=== PATIENT | female | born 1940 | race Caucasian/White ===

== ENCOUNTER 2017-12-15 14:53 | Emergency (ER) | payer BC, MEDICARE ==
[~2017-12-15] VITALS: Ht 165.1 cm; Wt 83.2 kg
[2017-12-15 15:30] VITALS: BP 164/71; PULSE 64; RESP 16; TEMP 97.6; O2SAT 97
--- NOTE | 2017-12-15 16:41 | PD ---
HPI Chief Complaint: Cardiac Complaint Time Seen by Provider: 16:27 Travel History International Travel<30 days: No Contact w/Intl Traveler<30days: No Traveled to known affect area: No History of Present Illness HPI This patient complains of last night having a rapid heartbeat. She has history of paroxysmal A. fib and takes amiodarone and baby aspirin therapy. She often has a baseline bradycardia rhythm. She currently feels some dizziness. She has chronic dizziness going on for months to years. This hits her on a daily basis. Symptoms severity is moderate. No alleviating factors. No syncope. No exacerbating factors. She reports medicine compliance. PFS Past Medical History Hx Anticoagulant Therapy: Yes (asa 81mg) ?: Not Past Surgical History Hysterectomy: Yes Social History Alcohol Use: No Tobacco Use: No Substance Use: No Allergies-Medications (Allergen,Severity, Reaction): Coded Allergies: moxifloxacin (Verified Allergy, Severe, facial swelling, 12/15/17) latex (Verified Allergy, Intermediate, rash, 12/15/17) Reported Meds & Prescriptions Reported Meds & Active Scripts Active Reported Aspirin 81 (Aspirin) 81 Mg Tabdr 81 Mg PO DAILY Amiodarone (Amiodarone HCl) 100 Mg Tab 100 Mg PO DAILY Letrozole 2.5 Mg Tab Review of Systems General / Constitutional: No: Fever Eyes: No: Visual changes HENT: Positive: Lightheadedness, No: Headaches Cardiovascular: Positive: Palpitations, Irregular Rhythm, Tachycardia, No: Chest Pain or Discomfort Respiratory: No: Shortness of Breath Gastrointestinal: No: Abdominal Pain Genitourinary: No: Dysuria Musculoskeletal: No: Pain Skin: No Rash Neurologic: Positive: Dizziness, No: Weakness Psychiatric: No: Depression Endocrine: No: Polydipsia Hematologic/Lymphatic: No: Easy Bruising Physical Exam Narrative GENERAL: Well-nourished, well-developed patient in no apparent distress. SKIN: Focused skin assessment reveals no rash and nodules. Skin is Warm and dry. HEAD: Atraumatic. Normocephalic. EYES: Pupils equal and round. No scleral icterus. No injection or drainage. ENT: No nasal bleeding or discharge. Mucous membranes pink and moist. NECK: Trachea midline. No JVD. CARDIOVASCULAR: Regular rate and rhythm. No murmur appreciated. Heart rate is regular and 60 RESPIRATORY: No accessory muscle use. Clear to auscultation. Breath sounds equal bilaterally. GASTROINTESTINAL: Abdomen soft, non-tender, nondistended. Hepatic and splenic margins not palpable. MUSCULOSKELETAL: No obvious deformities. No clubbing. No cyanosis. No edema. NEUROLOGICAL: Awake and alert. No obvious cranial nerve deficits. Motor grossly within normal limits. Normal speech. PSYCHIATRIC: Appropriate mood and affect; insight and judgment normal. Data Data Last Documented VS Vital Signs Date Time Temp Pulse Resp B/P (MAP) Pulse Ox O2 Delivery O2 Flow Rate FiO2 12/15/17 17:25 Room Air 12/15/17 15:30 97.6 64 16 164/71 (102) 97 Orders Orders Electrocardiogram (12/15/17 ) Comfort Filler / Telemetry GLEN.Q8H (12/15/17 16:32) Complete Blood Count With Diff (12/15/17 16:32) Basic Metabolic Panel (Bmp) (12/15/17 16:32) Iv Access Insert/Monitor (12/15/17 16:32) Labs Laboratory Tests Test 12/15/17 17:10 White Blood Count 3.8 TH/MM3 Red Blood Count 3.97 MIL/MM3 Hemoglobin 12.6 GM/DL Hematocrit 37.6 % Mean Corpuscular Volume 94.6 FL Mean Corpuscular Hemoglobin 31.7 PG Mean Corpuscular Hemoglobin Concent 33.5 % Red Cell Distribution Width 12.3 % Platelet Count 108 TH/MM3 Mean Platelet Volume 7.9 FL Neutrophils (%) (Auto) 45.0 % Lymphocytes (%) (Auto) 37.0 % Monocytes (%) (Auto) 14.4 % Eosinophils (%) (Auto) 3.1 % Basophils (%) (Auto) 0.5 % Neutrophils # (Auto) 1.8 TH/MM3 Lymphocytes # (Auto) 1.4 TH/MM3 Monocytes # (Auto) 0.5 TH/MM3 Eosinophils # (Auto) 0.1 TH/MM3 Basophils # (Auto) 0.0 TH/MM3 CBC Comment DIFF FINAL Differential Comment Blood Urea Nitrogen 19 MG/DL Creatinine 0.75 MG/DL Random Glucose 90 MG/DL Calcium Level 8.9 MG/DL Sodium Level 141 MEQ/L Potassium Level 4.2 MEQ/L Chloride Level 107 MEQ/L Carbon Dioxide Level 30.1 MEQ/L Anion Gap 4 MEQ/L Estimat Glomerular Filtration Rate 75 ML/MIN [facility] Medical Decision Making Medical Screen Exam Complete: Yes Emergency Medical Condition: Yes Medical Record Reviewed: Yes Differential Diagnosis Cardiac arrhythmia, vasovagal episode, PVCs Narrative Course I have reviewed the patient's electronic medical record. I reviewed her EKG which shows sinus bradycardia but no ectopy or ST elevation Extended cardiac monitoring shows sinus bradycardia without ectopy CBC shows some thrombocytopenia but nothing emergent. She is cautioned to get this reevaluated especially in light of her aspirin therapy Metabolic profile is normal Haven't seen any dangerous arrhythmias despite a lot of monitoring She does run bradycardic but no hypotension with that Recommend outpatient follow-up at this point Diagnosis Primary Impression: Palpitations Additional Impressions: Bradycardia Lightheadedness Additional Instructions: The patient was advised to follow up with their physician and return if they worsen. Your platelet count is a bit low, have your physician reevaluate this and follow -up Med/Other Pt SpecificInfo: Other Disposition: 01 DISCHARGE HOME Condition: Stable Joey Olivas MD Dec 15, 2017 16:41
[2017-12-15] MEDS ORDERED: AMIO0.1T PO (17:25)
[2017-12-15] MEDS ORDERED: ASPI1TAB57 PO (17:25)
[2017-12-15] MEDS ORDERED: LETR2.5T (17:25)
[2017-12-15 17:26] LABS: AUTOMATED NEUTROPHIL # 1.8 TH/MM3 (1.8-7.7); BASOPHIL % 0.5 % (0.0-2.0); EOSINOPHIL # 0.1 TH/MM3 (0-0.4); EOSINOPHIL % 3.1 % (0.0-4.0); HEMATOCRIT 37.6 % (35.0-46.0); HEMOGLOBIN 12.6 GM/DL (11.6-15.3); LYMPHOCYTE # 1.4 TH/MM3 (1.0-4.8); MEAN CELL VOLUME 94.6 FL (80.0-100.0); MEAN CORPUSCULAR HEMOGLOBIN 31.7 PG (27.0-34.0); MEAN CORPUSCULAR HGB CONC 33.5 % (32.0-36.0); MEAN PLATELET VOLUME 7.9 FL (7.0-11.0); MONO % 14.4 % (0.0-8.0); MONOCYTE # 0.5 TH/MM3 (0-0.9); PLATELET COUNT 108 TH/MM3 (150-450); RED BLOOD COUNT 3.97 MIL/MM3 (4.00-5.30); RED CELL DISTRIBUTION WIDTH 12.3 % (11.6-17.2); WHITE BLOOD COUNT 3.8 TH/MM3 (4.0-11.0)
[2017-12-15 17:56] LABS: BICARBONATE 30.1 MEQ/L (21.0-32.0); CALCIUM 8.9 MG/DL (8.5-10.1)
[2017-12-15 18:00] LABS: CREATININE 0.75 MG/DL (0.50-1.00)
[2017-12-15 19:04] VITALS: BP 145/74
--- NOTE | 2017-12-16 14:36 | EKG ---
Date Performed: 12/15/2017 Time Performed: 16:48:08 PTAGE: 77 years EKG: SINUS BRADYCARDIA BORDERLINE ECG NO PREVIOUS TRACING DOCTOR: Matt Hutton Interpretating Date/Time 12/16/2017 14:34:03
== END 2017-12-15 19:06 | disposition home or self-care (01) ==
LOC: PHED 14:53
DX: R00.2 Palpitations (principal); R00.1 Bradycardia, unspecified; I48.0 Paroxysmal atrial fibrillation; Z79.01 Long term (current) use of anticoagulants
CPT/HCPCS: 80048; 85025; 93005; 99284

== ENCOUNTER 2017-12-22 11:19 | Inpatient (IN) | payer MEDICARE, BC ==
[2017-12-22] VITALS (7 sets, daily range): BP systolic 117–171; BP diastolic 54–79; PULSE 47–98; RESP 16–18; TEMP 97.9–98; O2SAT 96–99
[~2017-12-22] VITALS: Ht 165.1 cm; Wt 83.0 kg
[~2017-12-22 11:19] MED LIST: AMIO0.1T PO; ASPI1TAB57 PO; LETR2.5T
[2017-12-22] MEDS ORDERED: SODIUM CHLOR 0.9% 1000 ML INJ 1,000 ML IV ONE (11:45)
[2017-12-22] MEDS ORDERED: SODIUM CHLORIDE 0.9% FLUSH 10 ML FLUSH IVF PRN (11:45)
--- NOTE | 2017-12-22 11:46 | PD ---
HPI Chief Complaint: General Weakness Time Seen by Provider: 11:33 Travel History International Travel<30 days: No Contact w/Intl Traveler<30days: No Traveled to known affect area: No History of Present Illness HPI 77-year-old female with history of paroxysmal A. fib, bradycardia, presents to emergency department following a syncopal episode. Patient was at a store with her when she began to feel weak and nauseous. She went outside to get some fresh air. She leaned up against trash can at which time she "blacked out. " She slid down to the ground. She did not strike her head or lose consciousness. She states now she feels weak and tired. Denies any chest pain or tightness. 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 She was seen and evaluated on the for evaluation of palpitations at the [place] emergency department. She was discharged home at that time. Patient denies any recent illnesses, fever, chills. She has no other symptoms to report. PFSH Past Medical History Hx Anticoagulant Therapy: Yes (asa 81mg) Atrial Fibrillation: Yes Cancer: Yes (right breast ) Cardiovascular Problems: Yes (BRADYCARDIA ) Past Surgical History Hysterectomy: Yes Tonsillectomy: Yes Other Surgery: Yes (right breast lumpectomy ) Social History Alcohol Use: No Tobacco Use: No Substance Use: No Allergies-Medications (Allergen,Severity, Reaction): Coded Allergies: moxifloxacin (Verified Allergy, Severe, facial swelling, 12/22/17) latex (Verified Allergy, Intermediate, rash, 12/22/17) Reported Meds & Prescriptions Reported Meds & Active Scripts Active Reported Aspirin 81 (Aspirin) 81 Mg Tabdr 81 Mg PO DAILY Amiodarone (Amiodarone HCl) 100 Mg Tab 100 Mg PO DAILY Letrozole 2.5 Mg Tab Review of Systems Except as stated in HPI: all other systems reviewed are Neg Physical Exam Narrative GENERAL: Well-nourished female patient, in no acute distress. SKIN: Focused skin assessment warm/dry. HEAD: Atraumatic. Normocephalic. EYES: Pupils equal and round. No scleral icterus. No injection or drainage. ENT: No nasal bleeding or discharge. Mucous membranes pink and moist. NECK: Trachea midline. No JVD. CARDIOVASCULAR: Regular rate and rhythm. RESPIRATORY: No accessory muscle use. Clear to auscultation. Breath sounds equal bilaterally. GASTROINTESTINAL: Abdomen soft, non-tender, nondistended. Hepatic and splenic margins not palpable. MUSCULOSKELETAL: No obvious deformities. No clubbing. No cyanosis. No edema. NEUROLOGICAL: Awake and alert. No obvious cranial nerve deficits. Motor grossly within normal limits. Normal speech. PSYCHIATRIC: Appropriate mood and affect; insight and judgment normal. Data Data Last Documented VS Vital Signs Date Time Temp Pulse Resp B/P (MAP) Pulse Ox O2 Delivery O2 Flow Rate FiO2 12/22/17 13:33 89 18 152/72 (98) 99 Room Air 12/22/17 11:23 97.9 Orders Orders Electrocardiogram (12/22/17 ) Electrocardiogram (12/22/17 11:45) Basic Metabolic Panel (Bmp) (12/22/17 11:45) Complete Blood Count With Diff (12/22/17 11:45) Ckmb (Isoenzyme) Profile (12/22/17 11:45) Troponin I (12/22/17 11:45) Act Partial Throm Time (Ptt) (12/22/17 11:45) Prothrombin Time / Inr (Pt) (12/22/17 11:45) Urinalysis - C+S If Indicated (12/22/17 11:45) Chest, Single Ap (12/22/17 11:45) Ct Brain W/O Iv Contrast(Rout) (12/22/17 11:45) Ecg Monitoring (12/22/17 11:45) Iv Access Insert/Monitor (12/22/17 11:45) Oximetry (12/22/17 11:45) Sodium Chloride 0.9% Flush (Ns Flush) (12/22/17 11:45) Sodium Chlor 0.9% 1000 Ml Inj (Ns 1000 M (12/22/17 11:45) Orthostatic Vital Signs (12/22/17 11:45) Labs Laboratory Tests Test 12/22/17 11:55 White Blood Count 4.3 TH/MM3 Red Blood Count 4.06 MIL/MM3 Hemoglobin 13.0 GM/DL Hematocrit 37.6 % Mean Corpuscular Volume 92.8 FL Mean Corpuscular Hemoglobin 32.0 PG Mean Corpuscular Hemoglobin Concent 34.4 % Red Cell Distribution Width 12.7 % Platelet Count 102 TH/MM3 Mean Platelet Volume 8.5 FL Neutrophils (%) (Auto) 49.7 % Lymphocytes (%) (Auto) 33.6 % Monocytes (%) (Auto) 12.8 % Eosinophils (%) (Auto) 3.4 % Basophils (%) (Auto) 0.5 % Neutrophils # (Auto) 2.1 TH/MM3 Lymphocytes # (Auto) 1.4 TH/MM3 Monocytes # (Auto) 0.5 TH/MM3 Eosinophils # (Auto) 0.1 TH/MM3 Basophils # (Auto) 0.0 TH/MM3 CBC Comment DIFF FINAL Differential Comment Prothrombin Time 10.2 SEC Prothromb Time International Ratio 1.0 RATIO Activated Partial Thromboplast Time 25.9 SEC Blood Urea Nitrogen 16 MG/DL Creatinine 0.80 MG/DL Random Glucose 101 MG/DL Calcium Level 8.9 MG/DL Sodium Level 141 MEQ/L Potassium Level 3.8 MEQ/L Chloride Level 108 MEQ/L Carbon Dioxide Level 30.4 MEQ/L Anion Gap 3 MEQ/L Estimat Glomerular Filtration Rate 70 ML/MIN Total Creatine Kinase 63 U/L Troponin I LESS THAN 0.02 NG/ML MDM Medical Decision Making Medical Screen Exam Complete: Yes Emergency Medical Condition: Yes Medical Record Reviewed: Yes Differential Diagnosis Syncope versus near-syncope versus electrolyte abnormality versus ACS versus UTI Narrative Course 77-year-old female presents to the emergency department for evaluation following a syncopal episode. Patient does have history of bradycardia. EKG is complete and reviewed by my attending physician patient does have bradycardic rhythm. She has no other focal deficits or weakness. No obvious head trauma. Laboratory Tests Test 12/22/17 11:55 White Blood Count 4.3 TH/MM3 Red Blood Count 4.06 MIL/MM3 Hemoglobin 13.0 GM/DL Hematocrit 37.6 % Mean Corpuscular Volume 92.8 FL Mean Corpuscular Hemoglobin 32.0 PG Mean Corpuscular Hemoglobin Concent 34.4 % Red Cell Distribution Width 12.7 % Platelet Count 102 TH/MM3 Mean Platelet Volume 8.5 FL Neutrophils (%) (Auto) 49.7 % Lymphocytes (%) (Auto) 33.6 % Monocytes (%) (Auto) 12.8 % Eosinophils (%) (Auto) 3.4 % Basophils (%) (Auto) 0.5 % Neutrophils # (Auto) 2.1 TH/MM3 Lymphocytes # (Auto) 1.4 TH/MM3 Monocytes # (Auto) 0.5 TH/MM3 Eosinophils # (Auto) 0.1 TH/MM3 Basophils # (Auto) 0.0 TH/MM3 CBC Comment DIFF FINAL Differential Comment Prothrombin Time 10.2 SEC Prothromb Time International Ratio 1.0 RATIO Activated Partial Thromboplast Time 25.9 SEC Blood Urea Nitrogen 16 MG/DL Creatinine 0.80 MG/DL Random Glucose 101 MG/DL Calcium Level 8.9 MG/DL Sodium Level 141 MEQ/L Potassium Level 3.8 MEQ/L Chloride Level 108 MEQ/L Carbon Dioxide Level 30.4 MEQ/L Anion Gap 3 MEQ/L Estimat Glomerular Filtration Rate 70 ML/MIN Total Creatine Kinase 63 U/L Troponin I LESS THAN 0.02 NG/ML Last Impressions Head CT 12/22/17 1145 Signed Impressions: Service Date/Time: Friday, December 22, 2017 13:05 - CONCLUSION: Normal examination for a patient of this age. Chronic left maxillary sinus disease. Brian Villanueva MD Chest X-Ray 12/22/17 1145 Signed Impressions: Service Date/Time: Friday, December 22, 2017 12:11 - CONCLUSION: No acute disease. Mikey Nelson MD Lab work is reviewed and is without acute concern. I discussed the patient my attending physician who does agree the patient would benefit from observation for syncope. Plan is discussed with the patient and her who is at bedside. They are in agreement with this plan of care. Diagnosis Primary Impression: Syncope Qualified Codes: R55 - Syncope and collapse Additional Impression: Bradycardia Admitting Information Admitting Physician Requests: Observation Condition: Stable Whit Issa Dec 22, 2017 11:46
[2017-12-22 12:15] LABS: AUTOMATED NEUTROPHIL # 2.1 TH/MM3 (1.8-7.7); BASOPHIL % 0.5 % (0.0-2.0); EOSINOPHIL # 0.1 TH/MM3 (0-0.4); EOSINOPHIL % 3.4 % (0.0-4.0); HEMATOCRIT 37.6 % (35.0-46.0); LYMPH % 33.6 % (9.0-44.0); LYMPHOCYTE # 1.4 TH/MM3 (1.0-4.8); MEAN CELL VOLUME 92.8 FL (80.0-100.0); MEAN CORPUSCULAR HGB CONC 34.4 % (32.0-36.0); MEAN PLATELET VOLUME 8.5 FL (7.0-11.0); MONO % 12.8 % (0.0-8.0); MONOCYTE # 0.5 TH/MM3 (0-0.9); NEUT % 49.7 % (16.0-70.0); PLATELET COUNT 102 TH/MM3 (150-450); RED BLOOD COUNT 4.06 MIL/MM3 (4.00-5.30); RED CELL DISTRIBUTION WIDTH 12.7 % (11.6-17.2); WHITE BLOOD COUNT 4.3 TH/MM3 (4.0-11.0)
[2017-12-22 12:27] LABS: PROTHROMBIN TIME - PATIENT 10.2 SEC (9.8-11.6)
[2017-12-22 12:38] LABS: BICARBONATE 30.4 MEQ/L (21.0-32.0); BLOOD UREA NITROGEN 16 MG/DL (7-18); CALCIUM 8.9 MG/DL (8.5-10.1); CHLORIDE 108 MEQ/L (98-107); GLOMERULAR FILTRATION RATE 70 ML/MIN (>89); GLUCOSE,RANDOM 101 MG/DL (74-106); SODIUM (NA) 141 MEQ/L (136-145)
[2017-12-22 12:42] LABS: TROPONIN I LESS THAN 0.02 NG/ML (0.02-0.05)
--- NOTE | 2017-12-22 12:48 | RADRPT ---
EXAM DATE/TIME: 12/22/2017 12:11 [facility] COMPARISON: No previous studies available for comparison. INDICATIONS : Patient passed out today- Syncopal episode. MEDICAL HISTORY : AFIB. SURGICAL HISTORY : None. ENCOUNTER: Initial ACUITY: 1 day PAIN SCORE: 0/10 LOCATION: Bilateral chest FINDINGS: A single view of the chest demonstrates the lungs to be symmetrically aerated without evidence of mas s, infiltrate or effusion. The cardiomediastinal contours are unremarkable. Osseous structures are intact. CONCLUSION: No acute disease. Mikey Nelson MD on December 22, 2017 at 12:46 Board Certified Radiologist. This report was verified electronically.
--- NOTE | 2017-12-22 13:24 | RADRPT ---
EXAM DATE/TIME: 12/22/2017 13:05 [facility] COMPARISON: No previous studies available for comparison. INDICATIONS : Syncopal episode. RADIATION DOSE: 56.35 CTDIvol (mGy) MEDICAL HISTORY : Cardiovascular disease. Carcinoma, breast. SURGICAL HISTORY : Hysterectomy. ENCOUNTER: Initial ACUITY: 1 day PAIN SCALE: 0/10 LOCATION: cranial TECHNIQUE: Multiple contiguous axial images were obtained of the head. Using automated exposure control and adj ustment of the mA and/or kV according to patient size, radiation dose was kept as low as reasonably a chievable to obtain optimal diagnostic quality images. DICOM format image data is available electro nically for review and comparison. FINDINGS: CEREBRUM: The ventricles are normal for age. No evidence of midline shift, mass lesion, hemorrhage or acute in farction. No extra-axial fluid collections are seen. There are chronic white matter changes bilatera lly characteristic for patient's age. POSTERIOR FOSSA: The cerebellum and brainstem are intact. The 4th ventricle is midline. The cerebellopontine angle i s unremarkable. EXTRACRANIAL: The visualized portion of the orbits is intact. Chronic left maxillary sinus disease. SKULL: The calvaria is intact. No evidence of skull fracture. CONCLUSION: Normal examination for a patient of this age. Chronic left maxillary sinus disease. Brian Villanueva MD on December 22, 2017 at 13:21 Board Certified Radiologist. This report was verified electronically.
[2017-12-22 13:57] LABS: BILIRUBIN, URINE NEG (NEG); BLOOD, URINE NEG (NEG); GLUCOSE,URINE NEG (NEG); KETONE, URINE NEG (NEG); MUCUS URINE FEW /lpf (OCC); NITRITE,URINE NEG (NEG); PH, URINE 5.5 (5.0-8.5); URINE COLOR LIGHT-YELLOW (YELLW/STRAW); URINE LEUKOCYTE ESTERASE NEG (NEG)
[2017-12-22] MEDS ORDERED: SODIUM CHLORIDE 0.9% FLUSH 10 ML FLUSH IV FLUSH PRN (15:00)
--- NOTE | 2017-12-22 15:14 | HHI.HP ---
[facility] Service [facility] Primary Care Physician Non-Staff Admission Diagnosis syncope; bradycardia Diagnoses: Chief Complaint: near syncope Travel History International Travel<30 Days: No Contact w/Intl Traveler <30 Da: No Traveled to Known Affected Are: No History of Present Illness Written by Patricia Tuttle, acting as scribe for Dr. Tobias on 12/22/17 at 15: 11. 77-year-old female with history of paroxysmal atrial fibrillation, bradycardia, and breast cancer in 2014 s/p lumpectomy, presents with an episode of near syncope. The patient reports she was walking around [employer] with her when she continued to feel very weak so she went outside and was standing by the trash can when she became acutely nauseous, diaphoretic, tremulous, and almost passed out. She lowered herself to the ground. The patient believes she didn't actually totally black out because she was aware of everything that was going on. Denies hitting her head. She denies any palpitations during this episode. Denies any chest pain, shortness of breath, headache, visual changes, numbness/tingling of face, abdominal pain, vomiting, diarrhea, or constipation. She did have an episode heart racing and tingling of the hands a week ago on 12/15 and she went to [facility]. EKG at that time showed sinus bradycardia, otherwise workup unremarkable and she was discharged home. She has a car rental service attendant Dr. Pro in [place] who has discussed potentially needing a pacemaker in the future. She also has plans to see local car rental service attendant Dr. Cochran but has not yet seen him yet. 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 She has no other medical complaints to report at this time. Review of Systems Except as stated in HPI: all other systems reviewed are Neg Past Family Social History Past Medical History paroxysmal atrial fibrillation bradycardia breast cancer in 2013 Past Surgical History hysterectomy right breast lumpectomy and lymph node resection tonsillectomy Reported Medications Aspirin 81 (Aspirin) 81 Mg Tabdr 81 Mg PO DAILY Amiodarone (Amiodarone HCl) 100 Mg Tab 100 Mg PO DAILY Letrozole 2.5 Mg Tab Krill oil Allergies: Coded Allergies: moxifloxacin (Verified Allergy, Severe, facial swelling, 12/22/17) latex (Verified Allergy, Intermediate, rash, 12/22/17) Active Ordered Medications Current Medications Medications (Trade) Dose Ordered Sig/Claire Route Start Time Stop Time Status Last Admin (NS Flush) 2 ml UNSCH PRN IV FLUSH 12/22/17 15:00 (NS Flush) 2 ml BID IV FLUSH 12/22/17 21:00 Family History Father with heart attack around age 63, lived to age 88 Social History quit smoking tobacco 10 years ago, denies any alcohol or illicit drug use Physical Exam Vital Signs Vital Signs Date Time Temp Pulse Resp B/P (MAP) Pulse Ox O2 Delivery O2 Flow Rate FiO2 12/22/17 13:33 89 18 152/72 (98) 99 Room Air 12/22/17 12:33 47 18 149/66 (93) 48 18 161/77 (105) 48 18 171/79 (109) 12/22/17 11:54 96 Room Air 12/22/17 11:23 97.9 47 16 157/70 (99) 98 Room Air Physical Exam GENERAL: Well-nourished, well-developed elderly female patient in [facility]. SKIN: Warm and dry. No rash. LUE abrasions/contusions. HEAD: Normocephalic. Atraumatic. EYES: Pupils equal and round. No scleral icterus. No injection or drainage. ENT: No nasal bleeding or discharge. Mucous membranes pink and moist. NECK: Supple. Trachea midline. CARDIOVASCULAR: Regular rate and rhythm. S1, S2 noted. No murmur appreciated. RESPIRATORY: No accessory muscle use. Clear to auscultation. Breath sounds equal bilaterally. GASTROINTESTINAL: Abdomen soft, non-tender, nondistended. Normoactive bowel sounds x4. MUSCULOSKELETAL: No obvious deformities. Extremities without clubbing, cyanosis , or edema. NEUROLOGICAL: Awake and alert. No obvious cranial nerve deficits. Motor grossly within normal limits. 5/5 muscle strength in bilateral upper and lower extremities. Normal speech. No facial droop/lid lag/tongue deviation. PSYCHIATRIC: Appropriate mood and affect; insight and judgment normal. Laboratory Laboratory Tests Test 12/22/17 11:55 12/22/17 13:11 White Blood Count 4.3 Red Blood Count 4.06 Hemoglobin 13.0 Hematocrit 37.6 Mean Corpuscular Volume 92.8 Mean Corpuscular Hemoglobin 32.0 Mean Corpuscular Hemoglobin Concent 34.4 Red Cell Distribution Width 12.7 Platelet Count 102 Mean Platelet Volume 8.5 Neutrophils (%) (Auto) 49.7 Lymphocytes (%) (Auto) 33.6 Monocytes (%) (Auto) 12.8 Eosinophils (%) (Auto) 3.4 Basophils (%) (Auto) 0.5 Neutrophils # (Auto) 2.1 Lymphocytes # (Auto) 1.4 Monocytes # (Auto) 0.5 Eosinophils # (Auto) 0.1 Basophils # (Auto) 0.0 CBC Comment DIFF FINAL Differential Comment Prothrombin Time 10.2 Prothromb Time International Ratio 1.0 Activated Partial Thromboplast Time 25.9 Blood Urea Nitrogen 16 Creatinine 0.80 Random Glucose 101 Calcium Level 8.9 Sodium Level 141 Potassium Level 3.8 Chloride Level 108 Carbon Dioxide Level 30.4 Anion Gap 3 Estimat Glomerular Filtration Rate 70 Total Creatine Kinase 63 Troponin I LESS THAN 0.02 Urine Color LIGHT-YELLOW Urine Turbidity CLEAR Urine pH 5.5 Urine Specific [place] 1.006 Urine Protein NEG Urine Glucose (UA) NEG Urine Ketones NEG Urine Occult Blood NEG Urine Nitrite NEG Urine Bilirubin NEG Urine Urobilinogen LESS THAN 2.0 Urine Leukocyte Esterase NEG Urine RBC 1 Urine WBC 1 Urine Mucus FEW Microscopic Urinalysis Comment CULT NOT INDICATED Result Diagram: 12/22/17 1155 12/22/17 1155 Imaging Last Impressions Head CT 12/22/17 1145 Signed Impressions: Service Date/Time: Friday, December 22, 2017 13:05 - CONCLUSION: Normal examination for a patient of this age. Chronic left maxillary sinus disease. Brian Villanueva MD Chest X-Ray 12/22/17 1145 Signed Impressions: Service Date/Time: Friday, December 22, 2017 12:11 - CONCLUSION: No acute disease. MD Anusha Norwood VTE Risk Assessment Anusha VTE Risk Assessment: Mod/High Risk (score >= 2) Caprini Risk Assessment Model Point Value = 1 Point Value = 2 Point Value = 3 Point Value = 5 Age 41-60 Minor surgery BMI > 25 kg/m2 Swollen legs Varicose veins or History of unexplained or recurrent spontaneous Oral contraceptives or hormone replacement Sepsis (< 1 month) Serious lung disease, including pneumonia (< 1 month) Abnormal pulmonary function Acute myocardial infarction Congestive heart failure (< 1 month) History of inflammatory bowel disease Medical patient at bed rest Age 61-74 Arthroscopic surgery Major open surgery (> 45 min) Laparoscopic surgery (> 45 min) Malignancy Confined to bed (> 72 hours) Immobilizing plaster cast Central venous access Age >= 75 History of VTE Family history of VTE Factor V Leiden Prothrombin [id number] Lupus anticoagulant Anticardiolipin antibodies Elevated serum homocysteine Heparin-induced thrombocytopenia Other congenital or acquired thrombophilia Stroke (< 1 month) Elective arthroplasty Hip, pelvis, or leg fracture Acute spinal cord injury (< 1 month) Prophylaxis Regimen Total Risk Factor Score Risk Level Prophylaxis Regimen 0-1 Low Early ambulation 2 Moderate Order ONE of the following: *Sequential Compression Device (SCD) *Heparin 5000 units SQ BID 3-4 Higher Order ONE of the following medications: *Heparin 5000 units SQ TID *Enoxaparin/Lovenox 40 mg SQ daily (WT < 150 kg, CrCl > 30 mL/min) *Enoxaparin/Lovenox 30 mg SQ daily (WT < 150 kg, CrCl > 10-29 mL/min) *Enoxaparin/Lovenox 30 mg SQ BID (WT < 150 kg, CrCl > 30 mL/min) AND/OR *Sequential Compression Device (SCD) 5 or more Highest Order ONE of the following medications: *Heparin 5000 units SQ TID (Preferred with Epidurals) *Enoxaparin/Lovenox 40 mg SQ daily (WT < 150 kg, CrCl > 30 mL/min) *Enoxaparin/Lovenox 30 mg SQ daily (WT < 150 kg, CrCl > 10-29 mL/min) *Enoxaparin/Lovenox 30 mg SQ BID (WT < 150 kg, CrCl > 30 mL/min) AND *Sequential Compression Device (SCD) Assessment and Plan Assessment and Plan 77-year-old female with history of paroxysmal atrial fibrillation, bradycardia, and breast cancer in 2014 s/p lumpectomy, presents with an episode of near syncope. Near Syncope, Symptomatic Bradycardia: EKG showed sinus bradycardia. HR has been in the 40s in the ER, now improved to 80s. Sees car rental service attendant in [place] Dr. Pro who has discussed possible need for pacemaker. -Rule out ACS with serial cardiac enzymes, first set negative -Check echocardiogram -Monitor on telemetry -Hold patient's amiodarone -Consult cardiology, patient scheduled to establish care with car rental service attendant Dr. Cochran Paroxysmal Atrial Fibrillation: EKGs with sinus bradycardia as above. -holding patient's amiodarone secondary to bradycardia -continue patient's aspirin -monitor on telemetry Hx of Breast Cancer: chronic, diagnosed in 2013, s/p lumpectomy and lymph node resection -continue patient's letrozole -outpatient f/up DVT Prophylaxis: teds/SCDs Discussed Condition With Patient, Whit GODWIN, RN Attending Statement This note was transcribed by debora Tuttle. I, Dr. Joey Tobias personally performed the history, physical exam, and medical decision making; and confirmed the accuracy of the information in the transcribed note. Authenticated by Dr. Joey Tobias on 12/22/17 at 15:51. Patricia Tuttle PA-C Dec 22, 2017 15:14 Joey Tobias MD Dec 22, 2017 15:51
--- NOTE | 2017-12-22 17:08 | EKG ---
Date Performed: 12/22/2017 Time Performed: 11:51:32 PTAGE: 77 years EKG: SINUS BRADYCARDIA WITH OCCASIONAL SUPRAVENTRICULAR PREMATURE COMPLEXES LOW QRS VOLTAGE IN P RECORDIAL LEADS BORDERLINE ECG PREVIOUS TRACING : 12/15/2017 16.48 No significant change from previous tracing noted. DOCTOR: Saturnino Johnson Interpretating Date/Time 12/22/2017 17:08:06
--- NOTE | 2017-12-22 18:46 | MB ---
cc: JOSE F GONZALEZ M.D. DATE OF CONSULTATION: 12/22/2017. REASON FOR CONSULTATION: Near syncope, history of paroxysmal atrial fibrillation, history of bradycardia. HISTORY OF PRESENT ILLNESS: The patient is a 77-year-old white female with a history of paroxysmal atrial fibrillation, breast cancer, chronic bradycardia who presented to the hospital after a near-syncopal episode. The patient was walking around a store with her when she gradually began to feel generalized weakness. She went outside to get some fresh air and stood by the trash can but she became progressively more lightheaded to the point of near-syncope. She also felt nauseated and diaphoretic. It took her about an hour before these symptoms completely resolved. She never truly lost consciousness. Over the last couple years she has had intermittent episodes of lightheadedness, mild to moderate, generally lasting only a few minutes. She was being considered by her hat and cap parts cutter hand in [place] for possible pacemaker implantation due to bradycardia. She has been maintained on amiodarone for the last two years for paroxysmal atrial fibrillation. She denies angina, pedal edema, paroxysmal nocturnal dyspnea, recent flu symptoms. PAST MEDICAL HISTORY: 1. Paroxysmal atrial fibrillation dating back to approximately 2014. 2. Chronic bradycardia (sinus bradycardia). 3. Right breast cancer status post lumpectomy and lymph node dissection in 2013). PAST SURGICAL HISTORY: 1. Hysterectomy. 2. Tonsillectomy. 3. Right breast lumpectomy. CARDIAC MEDICATIONS AT HOME: 1. Aspirin 81 milligrams daily. 2. Amiodarone 100 milligrams daily. ALLERGIES: 1. MOXIFLOXACIN. 2. LATEX. FAMILY HISTORY: Noncontributory. SOCIAL HISTORY: The patient quit smoking about ten years ago. There is no history of alcohol abuse. REVIEW OF SYSTEMS: Review of systems as in the history of present illness otherwise negative or noncontributory. She also denies headache, abdominal pain, melena, dyspepsia, bright red blood per rectum, fevers. PHYSICAL EXAMINATION: VITAL SIGNS: On physical exam, her blood pressure is 152/72 with a pulse of 49, respirations 18. GENERAL: In general, she is a well-developed, well-nourished white female in no acute distress. HEAD, EYES, EARS, NOSE, THROAT: On HEENT examination, jugular venous pressure is normal. Carotid pulses are 2+ bilaterally and without bruits. CHEST: Examination of the chest reveals clear lung cline. CARDIAC: On cardiac examination, she has a bradycardic, regular rhythm without S3, S4 and there is a grade 1/6 systolic ejection murmur heard at the base of the heart. The S2 heart sound is normal. ABDOMEN: On abdominal examination, she has a soft, nontender abdomen. Bowel sounds are present. There is no definite hepatosplenomegaly. EXTREMITIES: No cyanosis, clubbing. There may be trivial pre-edema bilaterally. EKGS: EKG shows possible ectopic atrial bradycardia, occasional premature atrial complex. LABORATORY STUDIES: Laboratory data includes WBC 4.3, hemoglobin 13.0, platelets 102,000. Potassium 3.8, BUN 16, creatinine 0.80. CK 63, troponin less than 0.02. INR 1.0. IMAGING STUDIES: Chest x-ray shows no acute disease. IMPRESSION: Near-syncope, bradycardia in this 77-year-old white female with a history of paroxysmal atrial fibrillation dating back to approximately 2014 and history of right breast cancer. I suspect her near-syncopal episode today was mostly due to a vasovagal mediated event, certainly exacerbated by her underlying bradycardia, which the patient states has been chronic. According to the patient she has been considered for pacemaker implantation in the future. She also has been maintained chronically on amiodarone at low dose 100 milligrams daily. She reports heart rates in the 20s when she was on 200 milligrams daily. I did discuss at length with her the potential therapeutic options for her atrial fibrillation. These would include permanent pacemaker implantation with increase in her medical therapy, as well as consideration of ablation therapy. RECOMMENDATIONS: 1. Overall at this point would favor stopping amiodarone and referring her as an outpatient to Dr. Lester Martinez for ablation. 2. Would also start anticoagulation with Apixaban 5 milligrams twice a day. 3. If stable, she can be discharged home tomorrow. 4. Check a 2-D echocardiogram to assess her left ventricular function. MD ALFREDA Monroe/CRISTINA /4:16 PM /6:30 PM ELIZABETH
[2017-12-22] MEDS: SODIUM CHLORIDE 0.9% FLUSH 10 ML FLUSH IV FLUSH SCH (20:51)
[2017-12-22] MEDS ORDERED: APIXABAN 5 MG TABLET PO SCH (21:00)
[2017-12-23] VITALS: BP_SYST 124; BP_SYST 134; BP_SYST 148; BP_DIAS 59; BP_DIAS 64; BP_DIAS 70; PULSE 52; PULSE 55; PULSE 58; RESP 18; RESP 19; TEMP 98.5; O2SAT 96; O2SAT 98
[2017-12-23] MEDS ORDERED: HEPARIN-D5W 25,000 U/250 ML 250 ML IV PRN (03:30)
[2017-12-23 04:00] VITALS: BP 119/57; PULSE 56; RESP 17; TEMP 98.2; O2SAT 96
[2017-12-23 04:30] VITALS: PULSE 43
[2017-12-23 04:48] LABS: HEMATOCRIT 33.9 % (35.0-46.0); MEAN CELL VOLUME 92.1 FL (80.0-100.0); MEAN CORPUSCULAR HEMOGLOBIN 32.5 PG (27.0-34.0); MEAN CORPUSCULAR HGB CONC 35.3 % (32.0-36.0); MEAN PLATELET VOLUME 8.6 FL (7.0-11.0); PLATELET COUNT 91 TH/MM3 (150-450); RED BLOOD COUNT 3.68 MIL/MM3 (4.00-5.30); RED CELL DISTRIBUTION WIDTH 12.6 % (11.6-17.2); WHITE BLOOD COUNT 3.7 TH/MM3 (4.0-11.0)
[2017-12-23 05:18] LABS: PROTHROMBIN TIME - PATIENT 10.4 SEC (9.8-11.6)
[2017-12-23] MEDS: SODIUM CHLORIDE 0.9% FLUSH 10 ML FLUSH IV FLUSH SCH (07:51)
[2017-12-23] MEDS ORDERED: ASPIRIN EC 81 MG TABEC PO SCH (09:00)
[2017-12-23] MEDS ORDERED: PT:LETROZOLE 2.5 MG PO SCH (09:00)
[2017-12-23] MEDS ORDERED: PATIENT OWN MEDICATION PO SCH (09:00)
--- NOTE | 2017-12-23 09:16 | EKG ---
Date Performed: 12/23/2017 Time Performed: 01:32:15 PTAGE: 77 years EKG: SINUS BRADYCARDIA PROLONGED QT INTERVAL ABNORMAL ECG PREVIOUS TRACING : 12/22/2017 11.51 No significant change from previous tracing noted. DOCTOR: Saturnino Johnson Interpretating Date/Time 12/23/2017 09:15:56
--- NOTE | 2017-12-23 09:35 | HHI.PR ---
Subjective Remarks Follow up syncopal episode, elevated troponin. Patient denies lightheadedness, dizziness, chest pain, dyspnea. No further episodes. Objective Vitals Vital Signs Date Time Temp Pulse Resp B/P (MAP) Pulse Ox O2 Delivery O2 Flow Rate FiO2 12/23/17 04:30 43 12/23/17 04:00 98.2 56 17 119/57 (77) 96 12/23/17 00:00 98.5 58 18 124/59 (80) 96 12/23/17 00:00 52 18 134/64 (87) 96 12/23/17 00:00 55 19 148/70 (96) 98 12/22/17 20:00 98.0 54 17 117/54 (75) 98 12/22/17 16:36 12/22/17 13:33 89 18 152/72 (98) 99 Room Air 12/22/17 12:33 47 18 149/66 (93) 48 18 161/77 (105) 48 18 171/79 (109) 12/22/17 11:54 96 Room Air 12/22/17 11:23 97.9 47 16 157/70 (99) 98 Room Air I/O 12/22/17 12/22/17 12/22/17 12/23/17 12/23/17 12/23/17 07:00 15:00 23:00 07:00 15:00 23:00 Intake Total 360 ml Balance 360 ml Intake Oral 360 ml # Voids 1 2 Result Diagram: 12/23/17 0413 12/22/17 1155 Imaging Last Impressions Head CT 12/22/17 1145 Signed Impressions: Service Date/Time: Friday, December 22, 2017 13:05 - CONCLUSION: Normal examination for a patient of this age. Chronic left maxillary sinus disease. Brian Villanueva MD Chest X-Ray 12/22/17 1145 Signed Impressions: Service Date/Time: Friday, December 22, 2017 12:11 - CONCLUSION: No acute disease. Mikey Nelson MD Objective Remarks General: Elderly female in no acute distress. Heart: Regular rate and rhythm. No murmur. Lungs: Clear to auscultation bilaterally. No wheezes, rales, or rhonchi. Breathing is nonlabored. Abdomen: Soft, nontender, nondistended. Extremities: No lower extremity edema. Psych: Alert and oriented. Procedures None Urinary Catheter: No Vascular Central Line Catheter: No A/P Assessment and Plan 1. Near syncope, symptomatic bradycardia: Appreciate cardiology recommendations. Continue monitoring on telemetry. No further episodes. Still with bradycardia, HR in 40s consistently. 2. Paroxysmal atrial fibrillation: EKG showing sinus bradycardia. Amiodarone on hold. Continue aspirin. 3. Elevated troponin: No chest pain. Started on heparin drip. Transfer to [facility]. Awaiting further cardiology recommendations. 4. History of breast cancer: Diagnosed in 2013. Continue Letrozole. Follow up as outpatient. 5. DVT prophylaxis: Heparin drip. Discharge Planning Pending cardiology clearance. Joey Tobias MD Dec 23, 2017 09:35
[2017-12-23 09:37] VITALS: BP 149/64; PULSE 54; RESP 18; TEMP 96.5; O2SAT 96
--- NOTE | 2017-12-23 11:22 | PD.CARD.PN ---
Subjective Subjective Remarks Denies CP, dyspnea, recurrent dizziness. Rare fleeting palpitations. Objective Medications Current Medications Medications (Trade) Dose Ordered Sig/Claire Route Start Time Stop Time Status Last Admin (NS Flush) 2 ml UNSCH PRN IV FLUSH 12/22/17 15:00 (NS Flush) 2 ml BID IV FLUSH 12/22/17 21:00 12/22/17 20:51 Patient Own Medication PT OWN MED: LETROZ... DAILY PO 12/23/17 09:00 Future Hold (Eliquis) 5 mg BID PO 12/22/17 21:00 Future Hold 12/22/17 20:51 Heparin Sodium/ Dextrose 250 ml @ 10 mls/hr TITRATE PRN IV 12/23/17 03:30 12/23/17 04:35 Vital Signs / I&O Vital Signs Date Time Temp Pulse Resp B/P (MAP) Pulse Ox O2 Delivery O2 Flow Rate FiO2 12/23/17 09:37 96.5 54 18 149/64 (92) 96 12/23/17 04:30 43 12/23/17 04:00 98.2 56 17 119/57 (77) 96 12/23/17 00:00 98.5 58 18 124/59 (80) 96 12/23/17 00:00 52 18 134/64 (87) 96 12/23/17 00:00 55 19 148/70 (96) 98 12/22/17 20:00 98.0 54 17 117/54 (75) 98 12/22/17 16:36 12/22/17 13:33 89 18 152/72 (98) 99 Room Air 12/22/17 12:33 47 18 149/66 (93) 48 18 161/77 (105) 48 18 171/79 (109) 12/22/17 11:54 96 Room Air 12/22/17 11:23 97.9 47 16 157/70 (99) 98 Room Air I/O 12/22/17 12/22/17 12/22/17 12/23/17 12/23/17 12/23/17 07:00 15:00 23:00 07:00 15:00 23:00 Intake Total 360 ml Balance 360 ml Intake Oral 360 ml # Voids 1 2 1 Physical Exam GENERAL: Well developed, well nourished. No acute distress. HEENT: Jugular venous pressure is normal. CHEST: Lungs clear to auscultation anteriorly. CARDIAC: Bradycardic regular rhythm without S3, S4, or murmur. ABDOMEN: Soft, nontender, no hepatosplenomegaly. Bowel sounds present. EXTREMITIES: No clubbing, cyanosis, or edema. Laboratory Laboratory Tests Test 12/22/17 11:55 12/22/17 13:11 12/22/17 17:48 12/23/17 00:20 White Blood Count 4.3 TH/MM3 Red Blood Count 4.06 MIL/MM3 Hemoglobin 13.0 GM/DL Hematocrit 37.6 % Mean Corpuscular Volume 92.8 FL Mean Corpuscular Hemoglobin 32.0 PG Mean Corpuscular Hemoglobin Concent 34.4 % Red Cell Distribution Width 12.7 % Platelet Count 102 TH/MM3 Mean Platelet Volume 8.5 FL Neutrophils (%) (Auto) 49.7 % Lymphocytes (%) (Auto) 33.6 % Monocytes (%) (Auto) 12.8 % Eosinophils (%) (Auto) 3.4 % Basophils (%) (Auto) 0.5 % Neutrophils # (Auto) 2.1 TH/MM3 Lymphocytes # (Auto) 1.4 TH/MM3 Monocytes # (Auto) 0.5 TH/MM3 Eosinophils # (Auto) 0.1 TH/MM3 Basophils # (Auto) 0.0 TH/MM3 CBC Comment DIFF FINAL Differential Comment Prothrombin Time 10.2 SEC Prothromb Time International Ratio 1.0 RATIO Activated Partial Thromboplast Time 25.9 SEC Blood Urea Nitrogen 16 MG/DL Creatinine 0.80 MG/DL Random Glucose 101 MG/DL Calcium Level 8.9 MG/DL Sodium Level 141 MEQ/L Potassium Level 3.8 MEQ/L Chloride Level 108 MEQ/L Carbon Dioxide Level 30.4 MEQ/L Anion Gap 3 MEQ/L Estimat Glomerular Filtration Rate 70 ML/MIN Total Creatine Kinase 63 U/L Troponin I LESS THAN 0.02 NG/ML 0.09 NG/ML 1.04 NG/ML Urine Color LIGHT-YELLOW Urine Turbidity CLEAR Urine pH 5.5 Urine Specific [place] 1.006 Urine Protein NEG mg/dL Urine Glucose (UA) NEG mg/dL Urine Ketones NEG mg/dL Urine Occult Blood NEG Urine Nitrite NEG Urine Bilirubin NEG Urine Urobilinogen LESS THAN 2.0 MG/DL Urine Leukocyte Esterase NEG Urine RBC 1 /hpf Urine WBC 1 /hpf Urine Mucus FEW /lpf Microscopic Urinalysis Comment CULT NOT INDICATED Test 12/23/17 02:15 12/23/17 04:13 Activated Partial Thromboplast Time 29.0 SEC 28.0 SEC White Blood Count 3.7 TH/MM3 Red Blood Count 3.68 MIL/MM3 Hemoglobin 12.0 GM/DL Hematocrit 33.9 % Mean Corpuscular Volume 92.1 FL Mean Corpuscular Hemoglobin 32.5 PG Mean Corpuscular Hemoglobin Concent 35.3 % Red Cell Distribution Width 12.6 % Platelet Count 91 TH/MM3 Mean Platelet Volume 8.6 FL Prothrombin Time 10.4 SEC Prothromb Time International Ratio 1.0 RATIO Imaging Last [address] 12/22/17 1145 Signed Impressions: Service Date/Time: Friday, December 22, 2017 13:05 - CONCLUSION: Normal examination for a patient of this age. Chronic left maxillary sinus disease. Brian Villanueva MD Chest X-Ray 12/22/17 1145 Signed Impressions: Service Date/Time: Friday, December 22, 2017 12:11 - CONCLUSION: No acute disease. Mikey Nelson MD Assessment and Plan Problem List: (1) Near syncope ICD Codes: R55 - Syncope and collapse Status: Acute Plan: Stable overnight. No further dizziness, near syncope. Suspect she had a vasovagal-mediated event worsened by underlying bradycardia. Monitoring unchanged, sinus bradycardia mostly 50's. Rec keep off Amiodarone. (2) Elevated troponin ICD Codes: R74.8 - Abnormal levels of other serum enzymes Status: Acute Plan: Mild troponin elevation unclear etiology. Absolutely no angina symptoms. No ST/T changes on EKG. Possibly related to severe bradycardia sustained at the time of her near syncope. Rec check echo. If left ventricular /valvular function normal, recommend no additional w/u. (3) Paroxysmal atrial fibrillation ICD Codes: I48.0 - Paroxysmal atrial fibrillation Status: Chronic Plan: Remains in sinus bradycardia. Overall favor patient stopping Amiodarone , discharging on apixaban 5 mg bid, referral to Dr. Martinez for ablation. Her atrial fib, I suspect, will be difficult to control medically. She notes breakthroughs on low dose Amiodarone and is unable to tolerate higher dose Amiodarone. (4) Bradycardia ICD Codes: R00.1 - Bradycardia, unspecified Status: Chronic Code Status full code Discussed Condition With patient Saturnino Johnson MD Dec 23, 2017 11:22
[2017-12-23 12:47] VITALS: BP_SYST 133; BP_SYST 141; BP_DIAS 62; BP_DIAS 66; PULSE 50; PULSE 63; RESP 18; TEMP 96.8; O2SAT 96; O2SAT 97
--- NOTE | 2017-12-23 13:36 | ECHRPT ---
Indication: CONCLUSIONS The left ventricular systolic function is normal with an estimated ejection fraction in the range of 55-60%. Wall thickness is normal. Normal left ventricular size. The left atrial size is mildly dilated. Mild mitral valve regurgitation. There is moderate tricuspid regurgitation. The estimated pulmonary arterial pressure is 44.8 mmHg. BP: / HR: Rhythm: Other MEASUREMENTS (Male / Female) Normal Values Technical Quality:Fair 2D ECHO LV Diastolic Diameter PLAX 4.6 cm 4.2 - 5.9 / 3.9 - 5.3 cm LV Systolic Diameter PLAX 3.5 cm IVS Diastolic Thickness 0.9 cm 0.6 - 1.0 / 0.6 - 0.9 cm LVPW Diastolic Thickness 0.8 cm 0.6 - 1.0 / 0.6 - 0.9 cm LV Relative Wall Thickness 0.4 LVOT Diameter 2.2 cm M-MODE Aortic Root Diameter MM 2.6 cm LA Systolic Diameter MM 3.3 cm LA Ao Ratio MM 1.3 AV Cusp Separation MM 2.0 cm DOPPLER AV Peak Velocity 159.0 cm/s AV Peak Gradient 10.1 mmHg LVOT Peak Velocity 103.0 cm/s LVOT Peak Gradient 4.2 mmHg AV Area Cont Eq pk 2.5 cm MR Peak Velocity 330.0 cm/s MR Peak Gradient 43.6 mmHg Mitral E Point Velocity 89.8 cm/s Mitral A Point Velocity 40.5 cm/s Mitral E to A Ratio 2.2 LV E' Lateral Velocity 9.8 cm/s Mitral E to LV E' Lateral Ratio 9.2 LV E' Septal Velocity 7.3 cm/s Mitral E to LV E' Septal Ratio 12.3 TR Peak Velocity 295.0 cm/s TR Peak Gradient 34.8 mmHg Right Atrial Pressure 10.0 mmHg Pulmonary Artery Systolic Pressu 44.8 mmHg Right Ventricular Systolic Press 44.8 mmHg PV Peak Velocity 132.0 cm/s PV Peak Gradient 7.0 mmHg FINDINGS LEFT VENTRICLE The left ventricular systolic function is normal with an estimated ejection fraction in the range of 55-60%. Wall thickness is normal. Normal left ventricular size. RIGHT VENTRICLE Normal right ventricular size and systolic function. LEFT ATRIUM The left atrial size is mildly dilated. RIGHT ATRIUM The right atrial size is normal. ATRIAL SEPTUM Normal atrial septal thickness without atrial level shunting by limited color doppler interrogation. AORTA The aortic root and proximal ascending aorta are normal in size on limited imaging. MITRAL VALVE Structurally normal mitral valve. Mild mitral valve regurgitation. AORTIC VALVE Trileaflet aortic valve. No aortic valve stenosis or regurgitation. TRICUSPID VALVE Structurally normal tricuspid valve. There is moderate tricuspid regurgitation. The estimated pulmonary arterial pressure is 44.8 mmHg. PULMONARY VALVE No pulmonary valve regurgitation or stenosis. VESSELS The inferior vena cava is normal in size. PERICARDIUM No pericardial effusion. Chaim Velazquez MD, FACC (Electronically Signed) Final Date:23 December 2017 13:35
[2017-12-23] MEDS ORDERED: APIX5TAB PO (15:55)
--- NOTE | 2017-12-23 15:55 | HHI.DCPOC ---
Discharge Care Plan Diagnosis: (1) Paroxysmal atrial fibrillation (2) Bradycardia (3) Near syncope Goals to Promote Your Health * To prevent worsening of your condition and complications * To maintain your health at the optimal level Directions to Meet Your Goals Take your medications as prescribed Follow your dietary instruction Follow activity as directed Keep your appointments as scheduled Take your immunizations and boosters as scheduled If your symptoms worsen call your PCP, if no PCP go to Urgent Care Center or Emergency Room Smoking is Dangerous to Your Health. Avoid second hand smoke Call the 24-hour hour crisis hotline for domestic abuse at Patricia Tuttle PA-C Dec 23, 2017 15:55
== END 2017-12-23 16:34 | disposition home or self-care (01) | DRG 310 ==
LOC: NEPE 11:19 → NEDA 14:51 → NEPFCDU 16:42 → OBSVTOIN 12-23 07:44
PROVIDERS: ADMIT Family Medicine; ATTEND Family Medicine
DX: R00.1 Bradycardia, unspecified (principal); R55 Syncope and collapse; I48.0 Paroxysmal atrial fibrillation; Z85.3 Personal history of malignant neoplasm of breast; Z88.1 Allergy status to other antibiotic agents; Z91.040 Latex allergy status; Z87.891 Personal history of nicotine dependence; R74.8 Abnormal levels of other serum enzymes
CPT/HCPCS: 70450; 71045; 80048; 81001; 82550; 84484; 85025; 85027; 85610; 85730; 93005; 93306; 96360; 96361; G0378; J1644; J7030

== ENCOUNTER 2017-12-26 08:34 | Inpatient (IN) | payer MEDICARE, BC ==
[2017-12-26] VITALS (12 sets, daily range): BP systolic 112–162; BP diastolic 57–98; PULSE 42–126; RESP 15–18; TEMP 97.5–98.4; O2SAT 98–100
[~2017-12-26] VITALS: Ht 170.2 cm; Wt 79.8 kg
[~2017-12-26 08:34] MED LIST changes: -AMIO0.1T PO; +APIX5TAB PO; -ASPI1TAB57 PO
[2017-12-26] MEDS ORDERED: SODIUM CHLORIDE 0.9% FLUSH 10 ML FLUSH IVF PRN (08:45)
[2017-12-26] MEDS ORDERED: DILTIAZEM HCL 25 MG/5 ML VIAL IV ONE (09:00)
[2017-12-26] MEDS ORDERED: ASPIRIN 81 MG CHEW TAB CHEW ONE (09:00)
[2017-12-26 09:05] LABS: AUTOMATED NEUTROPHIL # 2.1 TH/MM3 (1.8-7.7); BASOPHIL % 0.7 % (0.0-2.0); EOSINOPHIL # 0.1 TH/MM3 (0-0.4); EOSINOPHIL % 2.9 % (0.0-4.0); HEMATOCRIT 41.3 % (35.0-46.0); HEMOGLOBIN 14.3 GM/DL (11.6-15.3); LYMPH % 27.4 % (9.0-44.0); MEAN CELL VOLUME 91.9 FL (80.0-100.0); MEAN CORPUSCULAR HEMOGLOBIN 31.9 PG (27.0-34.0); MEAN CORPUSCULAR HGB CONC 34.7 % (32.0-36.0); MEAN PLATELET VOLUME 8.9 FL (7.0-11.0); MONOCYTE # 0.5 TH/MM3 (0-0.9); PLATELET COUNT 113 TH/MM3 (150-450); RED BLOOD COUNT 4.49 MIL/MM3 (4.00-5.30); RED CELL DISTRIBUTION WIDTH 12.7 % (11.6-17.2); WHITE BLOOD COUNT 3.8 TH/MM3 (4.0-11.0)
[2017-12-26 09:13] LABS: PROTHROMBIN TIME - PATIENT 9.8 SEC (9.8-11.6)
--- NOTE | 2017-12-26 09:25 | RADRPT ---
EXAM DATE/TIME: 12/26/2017 09:07 [facility] COMPARISON: CHEST SINGLE AP, December 22, 2017, 12:11. INDICATIONS : Chest pain. MEDICAL HISTORY : AFIB. SURGICAL HISTORY : None. ENCOUNTER: Initial ACUITY: 3 days PAIN SCORE: 7/10 LOCATION: Left upper chest FINDINGS: Frontal and lateral views of the chest demonstrate a normal-sized cardiac silhouette. No effusion, co nsolidation, or pneumothorax is present. Clips are in the right breast or lung. Bones and soft tissue s demonstrate no acute finding. There are degenerative changes of the thoracic spine. CONCLUSION: No acute cardiopulmonary abnormality is identified. Mikey Espana MD on December 26, 2017 at 9:16 Board Certified Radiologist. This report was verified electronically.
[2017-12-26 09:28] LABS: ALBUMIN 3.6 GM/DL (3.4-5.0); ALT (GPT) 48 U/L (10-53); AST (GOT) 30 U/L (15-37); BLOOD UREA NITROGEN 12 MG/DL (7-18); CALCIUM 9.4 MG/DL (8.5-10.1); CHLORIDE 107 MEQ/L (98-107); CREATININE 0.82 MG/DL (0.50-1.00); GLOMERULAR FILTRATION RATE 68 ML/MIN (>89); GLUCOSE,RANDOM 89 MG/DL (74-106); SODIUM (NA) 142 MEQ/L (136-145)
[2017-12-26 09:33] LABS: ALKALINE PHOSPHATASE 70 U/L (45-117); TOTAL BILIRUBIN ADULT 0.7 MG/DL (0.2-1.0); TOTAL PROTEIN 6.8 GM/DL (6.4-8.2); TROPONIN I 0.06 NG/ML (0.02-0.05)
[2017-12-26 09:42] LABS: BILIRUBIN, URINE NEG (NEG); BLOOD, URINE NEG (NEG); GLUCOSE,URINE NEG (NEG); KETONE, URINE NEG (NEG); NITRITE,URINE NEG (NEG); PH, URINE 6.5 (5.0-8.5); SQUAMOUS EPITHELIAL CELL URINE <1 /hpf (0-5); URINE COLOR LIGHT-YELLOW (YELLW/STRAW); URINE LEUKOCYTE ESTERASE NEG (NEG)
--- NOTE | 2017-12-26 09:48 | PD ---
HPI Chief Complaint: Chest Pain Time Seen by Provider: 08:38 Travel History International Travel<30 days: No Contact w/Intl Traveler<30days: No Traveled to known affect area: No History of Present Illness HPI Patient is a 77-year-old female presents emergency department with sharp midsternal chest pain since late last night. Patient also is noted that her heart rate is beating quite fast, the patient currently does not have a wheel molder though she was seen by Dr. Johnson a few days ago while inpatient after syncopal episode. At that time her troponin was trending up to 1.06, was documented that because she had no chest pain there is no indication for stress or catheterization at that time. Dr. Johnson wanted her to establish with Dr. Martinez for consideration of an ablation however the patient has not been able to establish yet. She also states she has been having some mild shortness of breath no nausea no vomiting. PFSH Past Medical History Hx Anticoagulant Therapy: Yes (asa 81mg) Atrial Fibrillation: Yes Cancer: Yes (right breast ) Cardiovascular Problems: Yes (BRADYCARDIA ) Reproductive: Yes Past Surgical History Hysterectomy: Yes Tonsillectomy: Yes Other Surgery: Yes (right breast lumpectomy ) Social History Alcohol Use: No Tobacco Use: No Substance Use: No Allergies-Medications (Allergen,Severity, Reaction): Coded Allergies: moxifloxacin (Verified Allergy, Severe, facial swelling, 12/22/17) latex (Verified Allergy, Intermediate, rash, 12/22/17) Reported Meds & Prescriptions Reported Meds & Active Scripts Active Eliquis (Apixaban) 5 Mg Tab 5 Mg PO BID Reported Letrozole 2.5 Mg Tab Review of Systems Except as stated in HPI: all other systems reviewed are Neg Physical Exam Narrative GENERAL: Well-developed well-nourished, no obvious distress peer SKIN: Focused skin assessment warm/dry. HEAD: Atraumatic. Normocephalic. EYES: Pupils equal and round. No scleral icterus. No injection or drainage. ENT: No nasal bleeding or discharge. Mucous membranes pink and moist. NECK: Trachea midline. No JVD. CARDIOVASCULAR: Tachycardia with regular rhythm. 2+ bilateral equal pulses in all 4 extremities.. No murmur appreciated. RESPIRATORY: No accessory muscle use. Clear to auscultation. Breath sounds equal bilaterally. GASTROINTESTINAL: Abdomen soft, non-tender, nondistended. Hepatic and splenic margins not palpable. MUSCULOSKELETAL: No obvious deformities. No clubbing. No cyanosis. No edema. NEUROLOGICAL: Awake and alert. No obvious cranial nerve deficits. Motor grossly within normal limits. Normal speech. PSYCHIATRIC: Appropriate mood and affect; insight and judgment normal. Data Data Last Documented VS Vital Signs Date Time Temp Pulse Resp B/P (MAP) Pulse Ox O2 Delivery O2 Flow Rate FiO2 12/26/17 11:30 60 16 112/58 (76) 99 12/26/17 08:45 Room Air 12/26/17 08:45 98.4 Orders Orders Electrocardiogram (12/26/17 08:38) Ckmb (Isoenzyme) Profile (12/26/17 08:38) Complete Blood Count With Diff (12/26/17 08:38) Comprehensive Metabolic Panel (12/26/17 08:38) Magnesium (Mg) (12/26/17 08:38) Prothrombin Time / Inr (Pt) (12/26/17 08:38) Act Partial Throm Time (Ptt) (12/26/17 08:38) Troponin I (12/26/17 08:38) Ecg Monitoring (12/26/17 08:38) Iv Access Insert/Monitor (12/26/17 08:38) Oximetry (12/26/17 08:38) Oxygen Administration (12/26/17 08:38) Sodium Chloride 0.9% Flush (Ns Flush) (12/26/17 08:45) Chest, Pa & Lat (12/26/17 08:38) Aspirin Chew (Aspirin Chew) (12/26/17 09:00) Diltiazem Inj (Cardizem Inj) (12/26/17 09:00) Urinalysis - C+S If Indicated (12/26/17 08:58) Electrocardiogram (12/26/17 09:38) Admit Order (Ed Use Only) (12/26/17 ) Consult Cardiology (12/26/17 ) Vital Signs (Adult) Q4H (12/26/17 11:37) Activity Bed Rest (12/26/17 11:37) Notify Dr: Other (12/26/17 11:37) Labs Laboratory Tests Test 12/26/17 08:50 12/26/17 09:00 12/26/17 11:30 White Blood Count 3.8 TH/MM3 Red Blood Count 4.49 MIL/MM3 Hemoglobin 14.3 GM/DL Hematocrit 41.3 % Mean Corpuscular Volume 91.9 FL Mean Corpuscular Hemoglobin 31.9 PG Mean Corpuscular Hemoglobin Concent 34.7 % Red Cell Distribution Width 12.7 % Platelet Count 113 TH/MM3 Mean Platelet Volume 8.9 FL Neutrophils (%) (Auto) 57.0 % Lymphocytes (%) (Auto) 27.4 % Monocytes (%) (Auto) 12.0 % Eosinophils (%) (Auto) 2.9 % Basophils (%) (Auto) 0.7 % Neutrophils # (Auto) 2.1 TH/MM3 Lymphocytes # (Auto) 1.0 TH/MM3 Monocytes # (Auto) 0.5 TH/MM3 Eosinophils # (Auto) 0.1 TH/MM3 Basophils # (Auto) 0.0 TH/MM3 CBC Comment DIFF FINAL Differential Comment Prothrombin Time 9.8 SEC Prothromb Time International Ratio 1.0 RATIO Activated Partial Thromboplast Time 27.8 SEC Blood Urea Nitrogen 12 MG/DL Creatinine 0.82 MG/DL Random Glucose 89 MG/DL Total Protein 6.8 GM/DL Albumin 3.6 GM/DL Calcium Level 9.4 MG/DL Magnesium Level 2.0 MG/DL Alkaline Phosphatase 70 U/L Aspartate Amino Transf (AST/SGOT) 30 U/L Alanine Aminotransferase (ALT/SGPT) 48 U/L Total Bilirubin 0.7 MG/DL Sodium Level 142 MEQ/L Potassium Level 4.0 MEQ/L Chloride Level 107 MEQ/L Carbon Dioxide Level 29.0 MEQ/L Anion Gap 6 MEQ/L Estimat Glomerular Filtration Rate 68 ML/MIN Total Creatine Kinase 68 U/L Troponin I 0.06 NG/ML 0.06 NG/ML Urine Color LIGHT-YELLOW Urine Turbidity CLEAR Urine pH 6.5 Urine Specific [place] 1.005 Urine Protein NEG mg/dL Urine Glucose (UA) NEG mg/dL Urine Ketones NEG mg/dL Urine Occult Blood NEG Urine Nitrite NEG Urine Bilirubin NEG Urine Urobilinogen LESS THAN 2.0 MG/DL Urine Leukocyte Esterase NEG Urine Squamous Epithelial Cells <1 /hpf Microscopic Urinalysis Comment CULT NOT INDICATED MDM Medical Decision Making Medical Screen Exam Complete: Yes Emergency Medical Condition: Yes Interpretation(s) Initial EKG shows atrial fib/flutter at a rate of 126, looks to be 2-1 atrial flutter, no concerning ST segment changes, there is an abnormal EKG. Cardiac monitoring did show atrial fibrillation and flutter ranging from 120 up to 140 bpm, just before Cardizem was administered patient had spontaneous conversion to sinus bradycardia at a rate of 58, Repeat EKG at this time showed sinus bradycardia rate of 58, borderline left axis deviation, early R-wave transition, no concerning ST segment changes. This a borderline EKG Differential Diagnosis ACS, AK, atrial fibrillation, NSTEMI. Narrative Course Patient was room to the emergency department, initially atrial flutter 2-1 coming in and out of A. fib as well heart rates between 120s and 140s, Cardizem was ordered and just prior to its administration the patient had conversion to sinus bradycardia. EKG was repeated and did not show any ST segment changes. The patient's troponin only minimally elevated today to 0.06, review of her previous records was a troponin as high as 1. Patient was discussed with Dr. Johnson given that she is having chest pain now I suggested that further inpatient workup may be warranted and he is agreed, patient was discussed with Dr. Hair will be admitted to [facility], will be consult with Dr. Martinez per Dr. Johnson' s recommendations. Patient asymptomatic after her heart rate converted, certainly is possible that she is having a rate dependent ischemia/infarct/ angina. Diagnosis Primary Impression: Chest pain Qualified Codes: R07.9 - Chest pain, unspecified Additional Impressions: Elevated troponin Near syncope Paroxysmal atrial fibrillation Admitting Information Admitting Physician Requests: Admit Condition: Stable Ulises Gabriel MD Dec 26, 2017 09:48
[2017-12-26] MEDS ORDERED: SENNOSIDES 8.6 MG TAB PO PRN (11:45)
[2017-12-26] MEDS ORDERED: NALOXONE HCL 0.4 MG/ML AMP IV PUSH PRN (11:45)
[2017-12-26] MEDS ORDERED: SODIUM CHLORIDE 0.9% FLUSH 10 ML FLUSH IV FLUSH PRN (11:45)
[2017-12-26] MEDS ORDERED: ACETAMINOPHEN 325 MG TAB PO PRN (11:45)
[2017-12-26] MEDS ORDERED: ONDANSETRON HCL 4 MG/2 ML VIAL IVP PRN (11:45)
[2017-12-26] MEDS ORDERED: ENOXAPARIN SODIUM 40 MG/0.4 ML SYRINGE SQ SCH ×2 (11:45→13:00)
[2017-12-26] MEDS ORDERED: BISACODYL 10 MG SUPP RECTAL PRN (11:45)
[2017-12-26] MEDS ORDERED: LACTULOSE SYRUP 20 GM/30 ML CUP PO PRN (11:45)
[2017-12-26] MEDS ORDERED: MAGNESIUM HYDROXIDE SUSP 30 ML CUP PO PRN (11:45)
--- NOTE | 2017-12-26 12:35 | HHI.HP ---
[facility]Staff Ad[facility] Diagnosis Chest Pain, Elevated Trop. Diagnoses: Travel History International Travel<30 Days: No Contact w/Intl Traveler <30 Da: No Traveled to Known Affected Are: No Past Family Social History Allergies: Coded Allergies: moxifloxacin (Verified Allergy, Severe, facial swelling, 12/22/17) latex (Verified Allergy, Intermediate, rash, 12/22/17) Physical Exam Vital Signs Vital Signs Date Time Temp Pulse Resp B/P (MAP) Pulse Ox O2 Delivery O2 Flow Rate FiO2 12/26/17 11:30 60 16 112/58 (76) 99 12/26/17 10:00 55 16 145/60 (88) 98 12/26/17 08:45 126 16 99 Room Air 12/26/17 08:45 99 Room Air 12/26/17 08:45 98.4 126 15 162/98 (119) 99 Physical Exam GENERAL: This is a well-nourished, well-developed patient, in no apparent distress. SKIN: No rashes, ecchymoses or lesions. Cool and dry. HEAD: Atraumatic. Normocephalic. No temporal or scalp tenderness. EYES: Pupils equal round and reactive. Extraocular motions intact. No scleral icterus. No injection or drainage. ENT: Nose without bleeding, purulent drainage or septal hematoma. Throat without erythema, tonsillar hypertrophy or exudate. Uvula midline. Airway patent. NECK: Trachea midline. No JVD or lymphadenopathy. Supple, nontender, no meningeal signs. CARDIOVASCULAR: Regular rate and rhythm without murmurs, gallops, or rubs. RESPIRATORY: Clear to auscultation. Breath sounds equal bilaterally. No wheezes , rales, or rhonchi. GASTROINTESTINAL: Abdomen soft, non-tender, nondistended. No hepato-splenomegaly , or palpable masses. No guarding. MUSCULOSKELETAL: Extremities without clubbing, cyanosis, or edema. No joint tenderness, effusion, or edema noted. No calf tenderness. Negative Homans sign bilaterally. NEUROLOGICAL: Awake and alert. Cranial nerves II through XII intact. Motor and sensory grossly within normal limits. Five out of 5 muscle strength in all muscle groups. Normal speech. Laboratory Laboratory Tests Test 12/26/17 08:50 12/26/17 09:00 12/26/17 11:30 White Blood Count 3.8 Red Blood Count 4.49 Hemoglobin 14.3 Hematocrit 41.3 Mean Corpuscular Volume 91.9 Mean Corpuscular Hemoglobin 31.9 Mean Corpuscular Hemoglobin Concent 34.7 Red Cell Distribution Width 12.7 Platelet Count 113 Mean Platelet Volume 8.9 Neutrophils (%) (Auto) 57.0 Lymphocytes (%) (Auto) 27.4 Monocytes (%) (Auto) 12.0 Eosinophils (%) (Auto) 2.9 Basophils (%) (Auto) 0.7 Neutrophils # (Auto) 2.1 Lymphocytes # (Auto) 1.0 Monocytes # (Auto) 0.5 Eosinophils # (Auto) 0.1 Basophils # (Auto) 0.0 CBC Comment DIFF FINAL Differential Comment Prothrombin Time 9.8 Prothromb Time International Ratio 1.0 Activated Partial Thromboplast Time 27.8 Blood Urea Nitrogen 12 Creatinine 0.82 Random Glucose 89 Total Protein 6.8 Albumin 3.6 Calcium Level 9.4 Magnesium Level 2.0 Alkaline Phosphatase 70 Aspartate Amino Transf (AST/SGOT) 30 Alanine Aminotransferase (ALT/SGPT) 48 Total Bilirubin 0.7 Sodium Level 142 Potassium Level 4.0 Chloride Level 107 Carbon Dioxide Level 29.0 Anion Gap 6 Estimat Glomerular Filtration Rate 68 Total Creatine Kinase 68 Troponin I 0.06 Urine Color LIGHT-YELLOW Urine Turbidity CLEAR Urine pH 6.[address] [place] 1.005 Urine Protein NEG Urine Glucose (UA) NEG Urine Ketones NEG Urine Occult Blood NEG Urine Nitrite NEG Urine Bilirubin NEG Urine Urobilinogen LESS THAN 2.0 Urine Leukocyte Esterase NEG Urine Squamous Epithelial Cells <1 Microscopic Urinalysis Comment CULT NOT INDICATED Result Diagram: 12/26/17 0850 12/26/17 0850 Caprini VTE Risk Assessment Caprini Risk Assessment Model Point Value = 1 Point Value = 2 Point Value = 3 Point Value = 5 Age 41-60 Minor surgery BMI > 25 kg/m2 Swollen legs Varicose veins or History of unexplained or recurrent spontaneous Oral contraceptives or hormone replacement Sepsis (< 1 month) Serious lung disease, including pneumonia (< 1 month) Abnormal pulmonary function Acute myocardial infarction Congestive heart failure (< 1 month) History of inflammatory bowel disease Medical patient at bed rest Age 61-74 Arthroscopic surgery Major open surgery (> 45 min) Laparoscopic surgery (> 45 min) Malignancy Confined to bed (> 72 hours) Immobilizing plaster cast Central venous access Age >= 75 History of VTE Family history of VTE Factor V Leiden Prothrombin [id number] Lupus anticoagulant Anticardiolipin antibodies Elevated serum homocysteine Heparin-induced thrombocytopenia Other congenital or acquired thrombophilia Stroke (< 1 month) Elective arthroplasty Hip, pelvis, or leg fracture Acute spinal cord injury (< 1 month) Prophylaxis Regimen Total Risk Factor Score Risk Level Prophylaxis Regimen 0-1 Low Early ambulation 2 Moderate Order ONE of the following: *Sequential Compression Device (SCD) *Heparin 5000 units SQ BID 3-4 Higher Order ONE of the following medications: *Heparin 5000 units SQ TID *Enoxaparin/Lovenox 40 mg SQ daily (WT < 150 kg, CrCl > 30 mL/min) *Enoxaparin/Lovenox 30 mg SQ daily (WT < 150 kg, CrCl > 10-29 mL/min) *Enoxaparin/Lovenox 30 mg SQ BID (WT < 150 kg, CrCl > 30 mL/min) AND/OR *Sequential Compression Device (SCD) 5 or more Highest Order ONE of the following medications: *Heparin 5000 units SQ TID (Preferred with Epidurals) *Enoxaparin/Lovenox 40 mg SQ daily (WT < 150 kg, CrCl > 30 mL/min) *Enoxaparin/Lovenox 30 mg SQ daily (WT < 150 kg, CrCl > 10-29 mL/min) *Enoxaparin/Lovenox 30 mg SQ BID (WT < 150 kg, CrCl > 30 mL/min) AND *Sequential Compression Device (SCD) Fredrick Hair DO Dec 26, 2017 12:35
--- NOTE | 2017-12-26 15:27 | MB ---
cc: Saturnino Johnson MD DATE OF CONSULT: 12/26/2017 REASON FOR CONSULTATION: Atrial flutter, atypical chest pain. HISTORY OF PRESENT ILLNESS: The patient is a 77-year-old white female with a history of paroxysmal atrial fibrillation, breast cancer, status post recent admission for near syncope who presented to the hospital once again, this time with complaints of fluttering palpitations. Last night at about 7 p.m. she began to experience fluttering palpitations associated with lightheadedness and some dyspnea. A short time later, she developed a left parasternal chest discomfort, which lasted about 20 minutes. She cannot recall any other episodes of chest pain recently. On presentation to the Emergency Department, she was found to be in atrial flutter. Since coming into the hospital, her palpitations have resolved. She denies pleurisy, syncope, near syncope, pedal edema, paroxysmal nocturnal dyspnea. During her last admission, I elected to stop her amiodarone due to bradycardia with eventual referral to Dr. Martinez for possible ablation of her atrial fibrillation. PAST MEDICAL HISTORY: 1. Paroxysmal atrial fibrillation dating back to 2014. 2. Right breast cancer, status post lumpectomy and lymph node dissection 2013. PAST SURGICAL HISTORY: 1. Hysterectomy. 2. Tonsillectomy. 3. Right breast lumpectomy. CARDIAC MEDICATIONS AT HOME: Eliquis 5 mg p.o. b.i.d. ALLERGIES: MOXIFLOXACIN AND LATEX. FAMILY HISTORY: Noncontributory. SOCIAL HISTORY: The patient denies any history of alcohol or tobacco abuse. REVIEW OF SYSTEMS: As in the history of present illness, otherwise negative or noncontributory. She also denies headache, visual changes, unilateral weakness and numbness, abdominal pain, melena, dyspepsia, bright red blood per rectum. PHYSICAL EXAMINATION: VITAL SIGNS: Blood pressure 112/58 with a pulse of 60, respirations 16. GENERAL: She is a well developed, well nourished white female, in no acute distress. NECK: Jugular venous pressure is normal. Carotid pulses are 2+ bilaterally and without bruits. CHEST: Examination reveals clear lung cline. CARDIAC: She has a regular rhythm and rate with a grade I/ systolic ejection murmur heard at the base of the heart. The S2 heart sound is normal. ABDOMEN: She has on soft, nontender abdomen. Bowel sounds are present. There is no definite hepatosplenomegaly. EXTREMITIES: Examination reveals no clubbing, cyanosis or edema. LABORATORY DATA: WBC 3.8, hemoglobin 14.3, platelets 113. Potassium 4.0, BUN 12, creatinine 0.82. Troponin 0.06. INR 1.0. Chest x-ray shows no acute disease. EKG shows atrial flutter, nonspecific T-wave abnormalities. IMPRESSION: Single episode of atypical chest pain, paroxysmal atrial flutter in a 77-year-old white female with a history of paroxysmal atrial fibrillation, breast cancer, status post recent admission for near syncope which was felt mostly due to a vasovagal mediated event. At this time, she is back in sinus rhythm. Her troponin levels are minimally elevated and decreased compared to her last admission. Baseline EKG today shows no acute ST segment or T-wave changes. RECOMMENDATIONS: 1. Continue anticoagulation therapy. 2. Consult Dr. Martinez for possible ablation procedure. 3. Check a Lexiscan nuclear stress test to further assess her atypical chest pains and slightly abnormal troponin levels. MD ALFREDA Monroe/SANTHOSH , 02:11 PM , 03:25 PM [facility]
--- NOTE | 2017-12-26 17:56 | HHI.HP ---
[facility] Non-Staff Admission Diagnosis Chest Pain, Elevated Trop. Diagnoses: Chief Complaint: Heart racing, chest pressure. Travel History International Travel<30 Days: No Contact w/Intl Traveler <30 Da: No Traveled to Known Affected Are: No History of Present Illness Ms. Ford is a 77-year-old female with a history of atrial fibrillation/atrial flutter, breast cancer status post Adriamycin use as well as radiation who presents to the emergency department today due to a feeling of heart racing and substernal chest pressure. Her symptoms started around 7 PM on 12/25/2017. She felt that her heart rate was quite high. She also had substernal chest pressure without any radiation or associated symptoms such as nausea, vomiting, diaphoresis. Patient was not able to sleep well. Her symptoms continued throughout the night. She eventually came to the emergency department in the morning for further evaluation. She was supposed to see Dr. Johnson with regards to her atrial flutter. She denies any cough, abdominal pain , fever or chills. She denies any changes in bowel or bladder habits. Review of Systems Except as stated in HPI: all other systems reviewed are Neg Past Family Social History Past Medical History Atrial fibrillation/atrial flutter Right-sided breast cancer Past Surgical History Right breast lumpectomy Hysterectomy Tonsillectomy Reported Medications Eliquis (Apixaban) 5 Mg Tab 5 Mg PO BID Reported Letrozole 2.5 Mg Tab Allergies: Coded Allergies: moxifloxacin (Verified Allergy, Severe, facial swelling, 12/22/17) latex (Verified Allergy, Intermediate, rash, 12/22/17) Family History Family history is significant for ovarian cancer in sister. Another sister had breast cancer. One brother and one sister had liver cancer. Social History Patient denies using tobacco, alcohol, illicit drugs. Physical Exam Vital Signs Vital Signs Date Time Temp Pulse Resp B/P (MAP) Pulse Ox O2 Delivery O2 Flow Rate FiO2 12/26/17 17:44 57 12/26/17 16:01 58 12/26/17 15:47 97.5 48 18 146/76 (99) 100 12/26/17 15:47 62 12/26/17 15:40 12/26/17 11:30 60 16 112/58 (76) 99 12/26/17 10:00 55 16 145/60 (88) 98 12/26/17 08:45 126 16 99 Room Air 12/26/17 08:45 99 Room Air 12/26/17 08:45 98.4 126 15 162/98 (119) 99 Physical Exam GENERAL: This is a well-nourished, well-developed patient, in no apparent distress. SKIN: No rashes, ecchymoses or lesions. Warm and dry. HEAD: Atraumatic. Normocephalic. No temporal or scalp tenderness. EYES: Pupils equal round and reactive. No injection or drainage. ENT: Nose without bleeding, purulent drainage or septal hematoma. Airway patent. NECK: Trachea midline. No lymphadenopathy. Supple, nontender, no meningeal signs. CARDIOVASCULAR: Regular rhythm, bradycardic without murmurs, gallops, or rubs. No JVD. RESPIRATORY: Clear to auscultation. Breath sounds equal bilaterally. No wheezes , rales, or rhonchi. GASTROINTESTINAL: Abdomen soft, non-tender, nondistended. No guarding. MUSCULOSKELETAL: Extremities without clubbing, cyanosis, or edema. NEUROLOGICAL: Awake and alert. Cranial nerves II through XII intact. No focal neurological deficits. Normal speech. Laboratory Laboratory Tests Test 12/26/17 08:50 12/26/17 09:00 12/26/17 11:30 White Blood Count 3.8 Red Blood Count 4.49 Hemoglobin 14.3 Hematocrit 41.3 Mean Corpuscular Volume 91.9 Mean Corpuscular Hemoglobin 31.9 Mean Corpuscular Hemoglobin Concent 34.7 Red Cell Distribution Width 12.7 Platelet Count 113 Mean Platelet Volume 8.9 Neutrophils (%) (Auto) 57.0 Lymphocytes (%) (Auto) 27.4 Monocytes (%) (Auto) 12.0 Eosinophils (%) (Auto) 2.9 Basophils (%) (Auto) 0.7 Neutrophils # (Auto) 2.1 Lymphocytes # (Auto) 1.0 Monocytes # (Auto) 0.5 Eosinophils # (Auto) 0.1 Basophils # (Auto) 0.0 CBC Comment DIFF FINAL Differential Comment Prothrombin Time 9.8 Prothromb Time International Ratio 1.0 Activated Partial Thromboplast Time 27.8 Blood Urea Nitrogen 12 Creatinine 0.82 Random Glucose 89 Total Protein 6.8 Albumin 3.6 Calcium Level 9.4 Magnesium Level 2.0 Alkaline Phosphatase 70 Aspartate Amino Transf (AST/SGOT) 30 Alanine Aminotransferase (ALT/SGPT) 48 Total Bilirubin 0.7 Sodium Level 142 Potassium Level 4.0 Chloride Level 107 Carbon Dioxide Level 29.0 Anion Gap 6 Estimat Glomerular Filtration Rate 68 Total Creatine Kinase 68 Troponin I 0.06 0.06 Urine Color LIGHT-YELLOW Urine Turbidity CLEAR Urine pH 6.5 Urine Specific [place] 1.005 Urine Protein NEG Urine Glucose (UA) NEG Urine Ketones NEG Urine Occult Blood NEG Urine Nitrite NEG Urine Bilirubin NEG Urine Urobilinogen LESS THAN 2.0 Urine Leukocyte Esterase NEG Urine Squamous Epithelial Cells <1 Microscopic Urinalysis Comment CULT NOT INDICATED Result Diagram: 12/26/17 0850 12/26/17 0850 Imaging Last Impressions Chest X-Ray 12/26/17 0838 Signed Impressions: Service Date/Time: Tuesday, December 26, 2017 09:07 - CONCLUSION: No acute cardiopulmonary abnormality is identified. Mikey Espana MD [place] VTE Risk Assessment Caprini VTE Risk Assessment: Mod/High Risk (score >= 2) Caprini Risk Assessment Model Point Value = 1 Point Value = 2 Point Value = 3 Point Value = 5 Age 41-60 Minor surgery BMI > 25 kg/m2 Swollen legs Varicose veins or History of unexplained or recurrent spontaneous Oral contraceptives or hormone replacement Sepsis (< 1 month) Serious lung disease, including pneumonia (< 1 month) Abnormal pulmonary function Acute myocardial infarction Congestive heart failure (< 1 month) History of inflammatory bowel disease Medical patient at bed rest Age 61-74 Arthroscopic surgery Major open surgery (> 45 min) Laparoscopic surgery (> 45 min) Malignancy Confined to bed (> 72 hours) Immobilizing plaster cast Central venous access Age >= 75 History of VTE Family history of VTE Factor V Leiden Prothrombin [id number] Lupus anticoagulant Anticardiolipin antibodies Elevated serum homocysteine Heparin-induced thrombocytopenia Other congenital or acquired thrombophilia Stroke (< 1 month) Elective arthroplasty Hip, pelvis, or leg fracture Acute spinal cord injury (< 1 month) Prophylaxis Regimen Total Risk Factor Score Risk Level Prophylaxis Regimen 0-1 Low Early ambulation 2 Moderate Order ONE of the following: *Sequential Compression Device (SCD) *Heparin 5000 units SQ BID 3-4 Higher Order ONE of the following medications: *Heparin 5000 units SQ TID *Enoxaparin/Lovenox 40 mg SQ daily (WT < 150 kg, CrCl > 30 mL/min) *Enoxaparin/Lovenox 30 mg SQ daily (WT < 150 kg, CrCl > 10-29 mL/min) *Enoxaparin/Lovenox 30 mg SQ BID (WT < 150 kg, CrCl > 30 mL/min) AND/OR *Sequential Compression Device (SCD) 5 or more Highest Order ONE of the following medications: *Heparin 5000 units SQ TID (Preferred with Epidurals) *Enoxaparin/Lovenox 40 mg SQ daily (WT < 150 kg, CrCl > 30 mL/min) *Enoxaparin/Lovenox 30 mg SQ daily (WT < 150 kg, CrCl > 10-29 mL/min) *Enoxaparin/Lovenox 30 mg SQ BID (WT < 150 kg, CrCl > 30 mL/min) AND *Sequential Compression Device (SCD) Assessment and Plan Problem List: (1) Atrial flutter ICD Code: I48.92 - Unspecified atrial flutter (2) Paroxysmal atrial fibrillation ICD Code: I48.0 - Paroxysmal atrial fibrillation Status: Chronic (3) History of breast cancer ICD Code: Z85.3 - Personal history of malignant neoplasm of breast Assessment and Plan Ms. Ford is a pleasant 77-year-old female with a history of atrial flutter, atrial fibrillation, breast cancer who presents to the emergency department on 12/26/2017 due to a feeling of heart racing as well as substernal chest pressure. -Atrial flutter with RVR -Atrial fibrillation -EKG in the emergency department is consistent. Patient converted to sinus rhythm spontaneously. -Cardiology is following. Lexiscan nuclear stress test is recommended. EP studies also recommended. -Patient's [id number] score is 3 (age 77, female). -Cardiology restarted apixaban 5 mg twice daily. -Mildly elevated troponins -troponins are 0.06, 0.06. Likely due to atrial flutter. -History of breast cancer -Status post Adriamycin meals as well as radiation therapy. -We will continue letrozole 2.5 mg daily. Full code. Apixaban 5 mg BID. Physician Certification 2 Midnight Certification Type: Admission for Inpatient Services Order for Inpatient Services The services are ordered in accordance with Medicare regulations or non- Medicare payer requirements, as applicable. In the case of services not specified as inpatient-only, they are appropriately provided as inpatient services in accordance with the 2-midnight benchmark. Estimated LOS (days): 2 days is the estimated time the patient will need to remain in the hospital, assuming treatment plan goals are met and no additional complications. Post-Hospital Plan: Home Fredrick Hair DO Dec 26, 2017 17:56
[2017-12-26] MEDS: SODIUM CHLORIDE 0.9% FLUSH 10 ML FLUSH IV FLUSH SCH (21:00)
[2017-12-26] MEDS: APIXABAN 5 MG TABLET PO SCH (21:33)
[2017-12-27] VITALS (23 sets, daily range): BP systolic 129–152; BP diastolic 63–95; PULSE 39–170; RESP 18–20; TEMP 97.6–98.6; O2SAT 97–98
--- NOTE | 2017-12-27 00:36 | MB ---
cc: Lester Martinez MD DATE OF CONSULT: 12/26/2017 REASON FOR CONSULTATION: Dizziness, syncope, atrial flutter with fast ventricular response. HISTORY OF PRESENT ILLNESS; Mrs. Ford is a 77-year-old female with a history of paroxysmal atrial flutter/atrial fibrillation, history of breast cancer, was on anticoagulation at home on Eliquis, admitted to the Emergency Room due to shortness of breath. She was found in atrial flutter with fast ventricular response. With addition of ____, patient back into sinus rhythm. I was consulted for evaluation and management. The chart was reviewed. The patient was evaluated. ALLERGIES: MOXIFLOXACIN AND LATEX. SOCIAL HISTORY: Negative for smoking and drinking. FAMILY HISTORY: Noncontributory to her current medical condition. MEDICATION: The patient is on Eliquis, is on ____, was on Cardizem that was discontinued, is on Lactulose. REVIEW OF SYSTEMS: Currently the patient refers feeling better, no chest pain or chest discomfort. PHYSICAL EXAMINATION: GENERAL: Alert, fully oriented. VITAL SIGNS: Blood pressure 124/57, pulse 56, respiratory rate 18. LUNGS: Ventilated. CARDIOVASCULAR: S1, S2 regular, no gallop, no murmur. ABDOMEN: Soft, no mass, no bruit. EXTREMITIES: No edema. ELECTROCARDIOGRAM: Currently shows sinus rhythm. Hospitalization showed what appeared to be atrial flutter with a rate of around 115 beats per minute. LABORATORY DATA: Hemoglobin is 14, white blood cell 3.8, creatinine 0.82, potassium 4.0. Troponin 0.06. ASSESSMENT AND RECOMMENDATIONS: Mrs. Ford previously presented with what appeared to be atrial flutter, possible atrial fibrillation, very symptomatic. Back into sinus rhythm. Feeling better. She is on anticoagulation. She is going to receive Eliquis tonight; it will be held in the morning. Case extensively discussed with her. Possible atrial flutter ablation tomorrow afternoon. MD TERESA Yoder/DE , 11:34 PM , 12:35 AM
--- NOTE | 2017-12-27 07:27 | PD.CARD.PN ---
Subjective Subjective Remarks Denies palpitations, CP, dyspnea, dizziness. Objective Medications Item Value Date Time Apixaban 5 mg 12/26/172099 (Eliquis) BID/PO 12/26/172132 Current Medications Medications (Trade) Dose Ordered Sig/Claire Route Start Time Stop Time Status Last Admin (NS Flush) 2 ml UNSCH PRN IVF 12/26/17 08:45 (NS Flush) 2 ml UNSCH PRN IV FLUSH 12/26/17 11:45 (NS Flush) 2 ml BID IV FLUSH 12/26/17 21:00 12/26/17 21:00 (Tylenol) 650 mg Q4H PRN PO 12/26/17 11:45 (Zofran Inj) 4 mg Q6H PRN IVP 12/26/17 11:45 (Narcan Inj) 0.4 mg UNSCH PRN IV PUSH 12/26/17 11:45 (Milk Of Magnesia Liq) 30 ml Q12H PRN PO 12/26/17 11:45 (Senokot) 17.2 mg Q12H PRN PO 12/26/17 11:45 (Dulcolax Supp) 10 mg DAILY PRN RECTAL 12/26/17 11:45 (Lactulose Liq) 30 ml DAILY PRN PO 12/26/17 11:45 (Eliquis) 5 mg BID PO 12/26/17 21:00 12/26/17 21:33 (Pneumovax-23 Inj) 25 mcg ONCE ONCE IM 12/27/17 09:00 12/27/17 09:01 (Flu (Quadrivalent) Vaccine Inj) 0.5 ml ONCE ONCE IM 12/27/17 09:00 12/27/17 09:01 Vital Signs / I&O Vital Signs Date Time Temp Pulse Resp B/P (MAP) Pulse Ox O2 Delivery O2 Flow Rate FiO2 12/27/17 06:26 49 12/27/17 05:02 49 12/27/17 04:17 97.7 51 139/63 (88) 97 12/27/17 04:17 44 12/27/17 03:27 39 12/27/17 02:15 40 12/27/17 01:00 42 12/27/17 00:32 97.6 48 129/63 (85) 97 12/27/17 00:00 46 12/26/17 23:18 42 12/26/17 22:00 48 12/26/17 21:00 46 12/26/17 20:00 97.7 56 124/57 (79) 98 12/26/17 20:00 48 12/26/17 19:00 54 12/26/17 18:02 53 12/26/17 17:44 57 12/26/17 16:01 58 12/26/17 15:47 97.5 48 18 146/76 (99) 100 12/26/17 15:47 62 12/26/17 15:40 12/26/17 11:30 60 16 112/58 (76) 99 12/26/17 10:00 55 16 145/60 (88) 98 12/26/17 08:45 126 16 99 Room Air 12/26/17 08:45 99 Room Air 12/26/17 08:45 98.4 126 15 162/98 (119) 99 I/O 12/26/17 12/26/17 12/26/17 12/27/17 12/27/17 12/27/17 07:00 15:00 23:00 07:00 15:00 23:00 Intake Total 120 ml 240 ml Output Total 600 ml Balance 120 ml -360 ml Intake Oral 120 ml 240 ml Output Urine Total 600 ml Physical Exam GENERAL: Well developed, well nourished. No acute distress. HEENT: Jugular venous pressure is normal. CHEST: Lungs clear to auscultation bilaterally. Unlabored respiratory effort. CARDIAC: Regular rate and rhythm without S3, S4. I/ [place] base. Normal S2. ABDOMEN: Soft, nontender, no hepatosplenomegaly. Bowel sounds present. EXTREMITIES: No clubbing, cyanosis, or edema. Laboratory Laboratory Tests Test 12/26/17 08:50 12/26/17 09:00 12/26/17 11:30 White Blood Count 3.8 TH/MM3 Red Blood Count 4.49 MIL/MM3 Hemoglobin 14.3 GM/DL Hematocrit 41.3 % Mean Corpuscular Volume 91.9 FL Mean Corpuscular Hemoglobin 31.9 PG Mean Corpuscular Hemoglobin Concent 34.7 % Red Cell Distribution Width 12.7 % Platelet Count 113 TH/MM3 Mean Platelet Volume 8.9 FL Neutrophils (%) (Auto) 57.0 % Lymphocytes (%) (Auto) 27.4 % Monocytes (%) (Auto) 12.0 % Eosinophils (%) (Auto) 2.9 % Basophils (%) (Auto) 0.7 % Neutrophils # (Auto) 2.1 TH/MM3 Lymphocytes # (Auto) 1.0 TH/MM3 Monocytes # (Auto) 0.5 TH/MM3 Eosinophils # (Auto) 0.1 TH/MM3 Basophils # (Auto) 0.0 TH/MM3 CBC Comment DIFF FINAL Differential Comment Prothrombin Time 9.8 SEC Prothromb Time International Ratio 1.0 RATIO Activated Partial Thromboplast Time 27.8 SEC Blood Urea Nitrogen 12 MG/DL Creatinine 0.82 MG/DL Random Glucose 89 MG/DL Total Protein 6.8 GM/DL Albumin 3.6 GM/DL Calcium Level 9.4 MG/DL Magnesium Level 2.0 MG/DL Alkaline Phosphatase 70 U/L Aspartate Amino Transf (AST/SGOT) 30 U/L Alanine Aminotransferase (ALT/SGPT) 48 U/L Total Bilirubin 0.7 MG/DL Sodium Level 142 MEQ/L Potassium Level 4.0 MEQ/L Chloride Level 107 MEQ/L Carbon Dioxide Level 29.0 MEQ/L Anion Gap 6 MEQ/L Estimat Glomerular Filtration Rate 68 ML/MIN Total Creatine Kinase 68 U/L Troponin I 0.06 NG/ML 0.06 NG/ML Urine Color LIGHT-YELLOW Urine Turbidity CLEAR Urine pH 6.5 Urine Specific [place] 1.005 Urine Protein NEG mg/dL Urine Glucose (UA) NEG mg/dL Urine Ketones NEG mg/dL Urine Occult Blood NEG Urine Nitrite NEG Urine Bilirubin NEG Urine Urobilinogen LESS THAN 2.0 MG/DL Urine Leukocyte Esterase NEG Urine Squamous Epithelial Cells <1 /hpf Microscopic Urinalysis Comment CULT NOT INDICATED Imaging Last 24 hours Impressions Chest X-Ray 12/26/17 0855 Signed Impressions: Service Date/Time: Tuesday, December 26, 2017 09:07 - CONCLUSION: No acute cardiopulmonary abnormality is identified. Mikey Espana MD Assessment and Plan Problem List: (1) Chest pain ICD Codes: R07.9 - Chest pain, unspecified Status: Acute Plan: No further atypical CP. For Lexiscan nuclear stress test. Even if ischemia demonstrated, rec medical therapy as patient had only single episode. Will f/u PRN, leave arrhythmia management to Dr. Martinez. (2) Paroxysmal atrial fibrillation ICD Codes: I48.0 - Paroxysmal atrial fibrillation Status: Chronic Plan: Stable overnight. For EP study, ablation today. (3) Atrial flutter ICD Codes: I48.92 - Unspecified atrial flutter Status: Acute Plan: Stable overnight. Dr. Martinez's consult noted, appreciated. For EP study today. Code Status full code Discussed Condition With patient Problem Qualifiers (1) Chest pain: Qualified Codes: R07.9 - Chest pain, unspecified (2) Atrial flutter: Qualified Codes: I48.4 - Atypical atrial flutter Saturnino Johnson MD Dec 27, 2017 07:27
[2017-12-27] MEDS ORDERED: INFLUENZA VIRUS VACCINE (QUADRIVALENT) 0.5 ML SYR IM ONE (09:00)
[2017-12-27] MEDS: SODIUM CHLORIDE 0.9% FLUSH 10 ML FLUSH IV FLUSH SCH ×2 (09:00→21:00)
[2017-12-27] MEDS ORDERED: PNEUMOCOCCAL POLYVALENT INJ 25 MCG/0.5 ML SYR IM ONE (09:00)
--- NOTE | 2017-12-27 09:30 | EKG ---
Date Performed: 12/26/2017 Time Performed: 08:47:31 PTAGE: 77 years EKG: ATRIAL FLUTTER/TACHYCARDIA WITH RAPID VENTRICULAR RESPONSE ST DEVIATION AND MODERATE T-WAVE ABNORMALITY, CONSIDER INFERIOR ISCHEMIA ABNORMAL ECG Compared to PREVIOUS TRACING , atrial flutter is new. PREVIOUS TRACIN12/23/2017 01.32 DOCTOR: Davy Louis Interpretating Date/Time 12/27/2017 09:29:13
--- NOTE | 2017-12-27 09:30 | EKG ---
Date Performed: 12/26/2017 Time Performed: 09:28:32 PTAGE: 77 years EKG: SINUS BRADYCARDIA BORDERLINE ECG Compared to PREVIOUS TRACING , sinus bradycardia has replaced atrial flutter. PREVIOUS TRACIN12/26 08.47 DOCTOR: Davy Louis Interpretating Date/Time 12/27/2017 09:29:32
--- NOTE | 2017-12-27 11:09 | EKG ---
Date Performed: 12/26/2017 Time Performed: 12:35:58 PTAGE: 77 years EKG: SINUS BRADYCARDIA BORDERLINE ECG Since the prior tracing, there has been no significant ady nge PREVIOUS TRACING : 12/26/2017 09.28 DOCTOR: Gary Garcia Interpretating Date/Time 12/27/2017 11:06:46
[2017-12-27] MEDS ORDERED: REGADENOSON INJ 0.4 MG/5 ML SYR IV ONE (12:40)
--- NOTE | 2017-12-27 14:19 | RADRPT ---
EXAM DATE/TIME: 12/27/2017 12:09 [place] COMPARISON: No previous studies available for comparison. INDICATIONS : Chest pain. Atrial fibrillation. DOSE: 25.5 mCi Tc99m Myoview at stress. 8.5 mCi Tc99m Myoview at rest. 0.4 mg Lexiscan STRESS SYMPTOMS: Dyspnea and headache. EJECTION FRACTION: 47% MEDICAL HISTORY : Carcinoma, breast. SURGICAL HISTORY : Hysterectomy. Tonsillectomy. ENCOUNTER: Initial ACUITY: 2 days PAIN SCALE: 4/10 LOCATION: Midsternal chest TECHNIQUE: The patient underwent pharmacologic stress with infusion of prescribed dose. Continuous ECG tracing was monitored during stress. Gated SPECT imaging was performed after stress and conventional SPECT i maging was performed at rest. The examination was performed on a SPECT/CT scanner, both attenuation and non-corrected datasets were reviewed. FINDINGS: DISTRIBUTION: The maximum perfused segment at stress is in the <inferior septum and mid posterior> wall. PERFUSION STUDY: The pattern of perfusion at stress is within normal limits. GATED STUDY: There is intact wall motion and thickening without hypokinetic or dyskinetic segments. CONCLUSION: Normal examination except for borderline ejection fraction at 47%. RISK CATEGORY: Low (<1% Annual Mortality Rate) Chaim Meneses MD on December 27, 2017 at 14:18 Board Certified Radiologist. This report was verified electronically.
--- NOTE | 2017-12-27 16:50 | HHI.PR ---
Subjective Remarks Patient seen around noon following stress test. She denies any chest pain or shortness of breath. Objective Vital Signs Date Time Temp Pulse Resp B/P (MAP) Pulse Ox O2 Delivery O2 Flow Rate FiO2 12/27/17 08:00 54 12/27/17 08:00 98.1 60 18 144/66 (92) 97 12/27/17 07:00 50 12/27/17 06:26 49 12/27/17 05:02 49 12/27/17 04:17 97.7 51 139/63 (88) 97 12/27/17 04:17 44 12/27/17 03:27 39 12/27/17 02:15 40 12/27/17 01:00 42 12/27/17 00:32 97.6 48 129/63 (85) 97 12/27/17 00:00 46 12/26/17 23:18 42 12/26/17 22:00 48 12/26/17 21:00 46 12/26/17 20:00 97.7 56 124/57 (79) 98 12/26/17 20:00 48 12/26/17 19:00 54 12/26/17 18:02 53 12/26/17 17:44 57 I/O 12/26/17 12/26/17 12/26/17 12/27/17 12/27/17 12/27/17 07:00 15:00 23:00 07:00 15:00 23:00 Intake Total 120 ml 240 ml Output Total 600 ml Balance 120 ml -360 ml Intake Oral 120 ml 240 ml Output Urine Total 600 ml Result Diagram: 12/26/17 0850 12/26/17 0850 Objective Remarks GENERAL: Patient sitting up in chair. Appears comfortable. SKIN: Warm and dry. HEAD: Normocephalic. EYES: No scleral icterus. No injection or drainage. NECK: Supple, trachea midline. No JVD. CARDIOVASCULAR: Tachycardic. without murmurs, gallops, or rubs. RESPIRATORY: Breath sounds equal bilaterally. No accessory muscle use. GASTROINTESTINAL: Abdomen soft, non-tender, nondistended. MUSCULOSKELETAL: No cyanosis. trace peripheral edema. BACK: Nontender without obvious deformity. No CVA tenderness. A/P Assessment and Plan Ms. Ford is a pleasant 77-year-old female with a history of atrial flutter, atrial fibrillation, breast cancer who presents to the emergency department on 12/26/2017 due to a feeling of heart racing as well as substernal chest pressure. //Atrial flutter with RVR //Atrial fibrillation -EKG in the emergency department is consistent. Patient converted to sinus rhythm spontaneously. -Cardiology is following. Lexiscan nuclear stress test is recommended. EP studies also recommended. -Patient's [id number] score is 3 (age 77, female). -Cardiology restarted apixaban 5 mg twice daily. = 12/27 She is tachycardic with narrow complex tachycardia up to the 150s. This improves to the 120s with lying down. Patient without chest pain. Nursing to contact cardiology as ablation is planned. //Mildly elevated troponins -troponins are 0.06, 0.06. Likely due to atrial flutter. //History of breast cancer -Status post Adriamycin meals as well as radiation therapy. -We will continue letrozole 2.5 mg daily. Full code. Apixaban 5 mg BID. Discharge Planning Pending cardiology clearance. Chin Fernandez MD Dec 27, 2017 16:50
[2017-12-27] MEDS ORDERED: ENOXAPARIN SODIUM 80 MG/0.8 ML SYRINGE SQ ONE (21:00)
[2017-12-27] MEDS: APIXABAN 5 MG TABLET PO SCH (21:00)
--- NOTE | 2017-12-27 23:04 | HHI.PR ---
Subjective Remarks Palpitation Objective Vital Signs Date Time Temp Pulse Resp B/P (MAP) Pulse Ox O2 Delivery O2 Flow Rate FiO2 12/27/17 19:00 140 12/27/17 18:00 110 12/27/17 17:00 140 12/27/17 16:00 98.6 140 20 152/90 (110) 98 12/27/17 16:00 140 12/27/17 15:00 160 12/27/17 14:00 170 12/27/17 11:00 54 12/27/17 10:00 58 12/27/17 09:00 60 12/27/17 08:00 54 12/27/17 08:00 98.1 60 18 144/66 (92) 97 12/27/17 07:00 50 12/27/17 06:26 49 12/27/17 05:02 49 12/27/17 04:17 97.7 51 139/63 (88) 97 12/27/17 04:17 44 12/27/17 03:27 39 12/27/17 02:15 40 12/27/17 01:00 42 12/27/17 00:32 97.6 48 129/63 (85) 97 12/27/17 00:00 46 12/26/17 23:18 42 I/O 12/27/17 12/27/17 12/27/17 12/28/17 12/28/17 12/28/17 07:00 15:00 23:00 07:00 15:00 23:00 Intake Total 240 ml 200 ml Output Total 600 ml 1300 ml Balance -360 ml -1100 ml Intake Oral 240 ml 200 ml Output Urine Total 600 ml 1300 ml Result Diagram: 12/26/17 0850 12/26/17 0850 Imaging Alert, fully oriented Lungs: ventilated Heart: S1, S2 irregular, tachycardia Abdomen: soft, no mass ExT: no edema Last Impressions Myocardial Perfusion Scan Nuc Med 12/27/17 0000 Signed Impressions: Service Date/Time: December 12:09 - CONCLUSION: Normal examination except for borderline ejection fraction at 47%%. RISK CATEGORY: Low (<1%% Annual Mortality Rate) Chaim Meneses MD Chest X-Ray 12/26/17 0838 Signed Impressions: Service Date/Time: Tuesday, December 26, 2017 09:07 - CONCLUSION: No acute cardiopulmonary abnormality is identified. Mikey Espana MD Current Medications Medications (Trade) Dose Ordered Sig/Claire Route Start Time Stop Time Status Last Admin (NS Flush) 2 ml UNSCH PRN IV FLUSH 12/26/17 11:45 (NS Flush) 2 ml BID IV FLUSH 12/26/17 21:00 12/27/17 21:00 (Tylenol) 650 mg Q4H PRN PO 12/26/17 11:45 (Zofran Inj) 4 mg Q6H PRN IVP 12/26/17 11:45 (Narcan Inj) 0.4 mg UNSCH PRN IV PUSH 12/26/17 11:45 (Milk Of Magnesia Liq) 30 ml Q12H PRN PO 12/26/17 11:45 (Senokot) 17.2 mg Q12H PRN PO 12/26/17 11:45 (Dulcolax Supp) 10 mg DAILY PRN RECTAL 12/26/17 11:45 (Lactulose Liq) 30 ml DAILY PRN PO 12/26/17 11:45 (Eliquis) 5 mg BID PO 12/26/17 21:00 Future hold 12/26/17 21:33 (Flu (Quadrivalent) Vaccine Inj) 0.5 ml ONCE ONCE IM 12/28/17 17:15 12/28/17 17:16 (Pneumovax-23 Inj) 25 mcg ONCE ONCE IM 12/28/17 17:15 12/28/17 17:16 Assessment and Plan Problem List: (1) Paroxysmal atrial fibrillation ICD Codes: I48.0 - Paroxysmal atrial fibrillation Status: Chronic Plan: Went into atrial fibrillation this afternoon HR very difficult to control Nuvlear stress study negative for ischemia EPS and ablation tomorrow (2) Chest pain ICD Codes: R07.9 - Chest pain, unspecified Status: Acute Plan: No chest pain reported Negative nuclear stress study Problem Qualifiers (1) Chest pain: Qualified Codes: R07.9 - Chest pain, unspecified Lester Martinez MD Dec 27, 2017 23:04
[2017-12-28] VITALS (20 sets, daily range): BP systolic 100–151; BP diastolic 68–82; PULSE 56–152; RESP 16–18; TEMP 97.3–98.3; O2SAT 93–98
[2017-12-28] MEDS ORDERED: METOPROLOL TARTRATE 25 MG TAB PO PRN (06:30)
[2017-12-28] MEDS ORDERED: LACTATED RINGER'S 1000 ML IV PRN (06:30)
[2017-12-28] MEDS ORDERED: SODIUM CHLORID 0.9% 500 ML IV PRN (06:30)
[2017-12-28] MEDS ORDERED: POVIDONE IODINE 5% (ANTISEPSIS KIT) 4 APPLICATIONS EACH NARE PRN (06:30)
[2017-12-28] MEDS ORDERED: CHLORHEXIDINE GLUCONATE 2 % 1 PACK (2 CLOTHS) TOPICAL PRN (06:30)
[2017-12-28 07:27] LABS: AUTOMATED NEUTROPHIL # 2.6 TH/MM3 (1.8-7.7); BASOPHIL % 0.4 % (0.0-2.0); EOSINOPHIL # 0.2 TH/MM3 (0-0.4); EOSINOPHIL % 3.5 % (0.0-4.0); HEMATOCRIT 42.7 % (35.0-46.0); HEMOGLOBIN 15.2 GM/DL (11.6-15.3); LYMPH % 26.6 % (9.0-44.0); LYMPHOCYTE # 1.2 TH/MM3 (1.0-4.8); MEAN CELL VOLUME 91.1 FL (80.0-100.0); MEAN CORPUSCULAR HEMOGLOBIN 32.3 PG (27.0-34.0); MEAN CORPUSCULAR HGB CONC 35.5 % (32.0-36.0); MEAN PLATELET VOLUME 9.1 FL (7.0-11.0); MONO % 11.3 % (0.0-8.0); MONOCYTE # 0.5 TH/MM3 (0-0.9); NEUT % 58.2 % (16.0-70.0); PLATELET COUNT 115 TH/MM3 (150-450); RED BLOOD COUNT 4.69 MIL/MM3 (4.00-5.30); RED CELL DISTRIBUTION WIDTH 12.9 % (11.6-17.2); WHITE BLOOD COUNT 4.5 TH/MM3 (4.0-11.0)
[2017-12-28 07:48] LABS: ALBUMIN 3.4 GM/DL (3.4-5.0); BICARBONATE 25.6 MEQ/L (21.0-32.0); CALCIUM 9.4 MG/DL (8.5-10.1); CREATININE 0.69 MG/DL (0.50-1.00); MAGNESIUM 1.9 MG/DL (1.5-2.5)
[2017-12-28 07:49] LABS: PHOSPHORUS 3.1 MG/DL (2.5-4.9)
[2017-12-28] MEDS: SODIUM CHLORIDE 0.9% FLUSH 10 ML FLUSH IV FLUSH SCH ×2 (09:00→21:55)
[2017-12-28] MEDS ORDERED: PHENYLEPH/NS 1000 MCG/10 ML SYR IV ONE (12:00)
[2017-12-28] MEDS ORDERED: ONDANSETRON HCL 4 MG/2 ML VIAL IV ONE (12:00)
[2017-12-28] MEDS ORDERED: METOPROLOL TARTRATE 5 MG/5 ML VIAL IV ONE (12:00)
[2017-12-28] MEDS ORDERED: PROPOFOL 200 MG/20 ML AMP IV ONE (12:00)
[2017-12-28] MEDS ORDERED: LIDOCAINE HCL 1% PF 5 ML SYRINGE OTHER ONE (12:00)
[2017-12-28] MEDS ORDERED: ePHEDrine/NS 25 MG/5 ML SYRINGE IV ONE (12:00)
[2017-12-28] MEDS ORDERED: ROCURONIUM INJ 50 MG/5 ML SYRINGE IV PUSH ONE (12:00)
[2017-12-28] MEDS ORDERED: DEXAMETHASONE SOD PHOS 4 MG/ML VIAL IV ONE (12:00)
--- NOTE | 2017-12-28 16:11 | HHI.PR ---
Subjective Remarks Patient seen today around 11:30 AM. Says she is feeling all right. Denies any chest pain or shortness of breath. Objective Vital Signs Date Time Temp Pulse Resp B/P (MAP) Pulse Ox O2 Delivery O2 Flow Rate FiO2 12/28/17 15:10 97.6 78 16 151/77 (101) 98 12/28/17 15:00 59 12/28/17 14:00 56 12/28/17 13:00 60 12/28/17 12:00 60 12/28/17 11:00 98.3 98 18 100/68 (79) 98 12/28/17 11:00 67 12/28/17 10:00 96 12/28/17 09:00 139 12/28/17 08:00 123 12/28/17 07:15 97.6 122 16 110/82 (91) 98 12/28/17 07:00 152 12/28/17 06:00 122 12/28/17 05:00 122 12/28/17 04:00 116 12/28/17 03:00 115 12/28/17 03:00 97.4 115 124/78 (93) 97 12/28/17 02:00 128 12/28/17 01:00 126 12/28/17 00:00 97.3 115 127/80 (96) 95 12/28/17 00:00 126 12/27/17 23:00 128 12/27/17 22:00 122 12/27/17 21:00 124 12/27/17 20:00 118 12/27/17 20:00 97.9 119 129/95 (106) 98 12/27/17 19:00 140 12/27/17 19:00 128 12/27/17 18:00 110 12/27/17 17:00 140 I/O 12/27/17 12/27/17 12/27/17 12/28/17 12/28/17 12/28/17 07:00 15:00 23:00 07:00 15:00 23:00 Intake Total 240 ml 200 ml 240 ml Output Total 600 ml 1300 ml 300 ml Balance -360 ml -1100 ml -60 ml Intake Oral 240 ml 200 ml 240 ml Output Urine Total 600 ml 1300 ml 300 ml Result Diagram: 12/28/1760512/28/17605 Objective Remarks GENERAL: Patient sitting up in chair. Appears comfortable. SKIN: Warm and dry. HEAD: Normocephalic. EYES: No scleral icterus. No injection or drainage. NECK: Supple, trachea midline. No JVD. CARDIOVASCULAR: Tachycardic. without murmurs, gallops, or rubs. RESPIRATORY: Breath sounds equal bilaterally. No accessory muscle use. GASTROINTESTINAL: Abdomen soft, non-tender, nondistended. MUSCULOSKELETAL: No cyanosis. trace peripheral edema. BACK: Nontender without obvious deformity. No CVA tenderness. A/P Assessment and Plan Ms. Ford is a pleasant 77-year-old female with a history of atrial flutter, atrial fibrillation, breast cancer who presents to the emergency department on 12/26/2017 due to a feeling of heart racing as well as substernal chest pressure. //Atrial flutter with RVR //Atrial fibrillation -EKG in the emergency department is consistent. Patient converted to sinus rhythm spontaneously. -Cardiology is following. Lexiscan nuclear stress test is recommended. EP studies also recommended. -Patient's [id number] score is 3 (age 77, female). -Cardiology restarted apixaban 5 mg twice daily. = 3/ She is tachycardic with narrow complex tachycardia up to the 150s. This improves to the 120s with lying down. Patient without chest pain. Nursing to contact cardiology as ablation is planned. = 3/2. Heart rate improved. Pending EPS and ablation tomorrow by cardiology. //Mildly elevated troponins -troponins are 0.06, 0.06. Likely due to atrial flutter. //History of breast cancer -Status post Adriamycin meals as well as radiation therapy. -We will continue letrozole 2.5 mg daily. Full code. Apixaban 5 mg BID. Discharge Planning EPS today. Pending cardiology clearance. Chin Fernandez MD Dec 28, 2017 16:11
[2017-12-28] MEDS ORDERED: INFLUENZA VIRUS VACCINE (QUADRIVALENT) 0.5 ML SYR IM ONE (17:15)
[2017-12-28] MEDS ORDERED: PNEUMOCOCCAL POLYVALENT INJ 25 MCG/0.5 ML SYR IM ONE (17:15)
[2017-12-28] MEDS ORDERED: KETAMINE HCL 500 MG/10 ML VIAL ONE (17:19)
[2017-12-28] MEDS ORDERED: PROPOFOL 200 MG/20 ML AMP ONE (17:20)
[2017-12-28] MEDS ORDERED: ISOPROTERENOL HCL 0.2 MG/ML AMP IV ONE ×2 (17:21→17:22)
[2017-12-28] MEDS ORDERED: HEPARIN-NS/PF FLUSH BAG 2,000 ML IV FLUSH ONE (17:32)
[2017-12-28] MEDS ORDERED: HEPARIN SODIUM - IV 10,000 UNITS/10 ML VIAL ONE ×2 (18:07→18:26)
[2017-12-28] MEDS ORDERED: PROTAMINE SULFATE 50 MG/5 ML VIAL ONE (19:37)
[2017-12-28] MEDS ORDERED: FUROSEMIDE 40 MG/4 ML VIAL ONE (19:37)
[2017-12-28] MEDS ORDERED: BACITRACIN OINT 0.9 GM PKT TOP ONE (19:45)
[2017-12-28] MEDS ORDERED: LORazepam 2 MG/ML VIAL IV PUSH PRN (19:45)
[2017-12-28] MEDS ORDERED: oxyCODONE/ACETAMINOPHEN 5 MG/325 MG TAB PO PRN ×2 (19:45)
[2017-12-28] MEDS ORDERED: LIDOCAINE HCL 1% 50 ML VIAL INFIL PRN (19:45)
[2017-12-28] MEDS ORDERED: METOCLOPRAMIDE HCL 10 MG/2 ML VIAL IV PUSH PRN (19:45)
[2017-12-28] MEDS ORDERED: ONDANSETRON HCL 4 MG/2 ML VIAL IV PUSH PRN (19:45)
[2017-12-28] MEDS ORDERED: SODIUM CHLOR 0.9% 250 ML INJ 250 ML IV PRN (19:45)
[2017-12-28] MEDS ORDERED: ATROPINE SULFATE 1 MG/ML VIAL IV PUSH PRN (19:45)
--- NOTE | 2017-12-28 20:15 | CATHPROC ---
[facility] HIS Report Study Information Study Number Admission Scheduled Start Study Start [id number] Dec 26 2017 6:03PM 12/28/2017 Dec 28 2017 4:32PM [place] Electrophysiology Study Admit Source Facility Department Emergency department [facility] - Wet Chemistry Analyst Physician and Clinical Staff Initial Lester Tidwell Ekg Monitor Tech Marcy Short RCIS Other Anesthesia, DAY CARE DIRECTOR Recorder Nupur Byrnes ,BSN Recorder Sharron De Leon,LALA Scrub Maya Floyd,RT(R) TECH2 Procedures Performed Procedure Location (Site) Vessel Name Ablation Procedure ICE CATHETER INSERT RA Atruim RF Ablation LT. ATRIUM LT. ATRIUM Equipment Time [employer] Description Size Mfg Part Number Used/Scraped NEEDLE, TRANSSEPTAL NRG 98 [id number] 17:07 [facility] Used C1 *[id number] BIOSENSE WILKINS CATHETER, CELSIUS DS, 8MM, F [id number] 18:01 FR 7 Used INC. TYPE QUAD *[id number] [employer]/ EP [id number] 17:07 KIT, TRANSDUCER / AFIB Used PACER *[id number] CATHETER, TACTICATH ABLAT BUNDLE 17:07 [facility] Used 65 BUNDLE *[id number]- BUNDLE [id number] CATHETER, FR7 OPTIMA SPIRAL 17:07 [facility] FR7 *[id number]- Used BUNDLE BUNDLE [id number] 17:07 [facility] CATHETER, JSN, QUAD BUNDLE FR 5 *[id number]- Used BUNDLE [id number] 17:07 [facility] CATHETER, JSN, QUAD BUNDLE FR 5 *[id number]- Used BUNDLE [id number] SET, COOL POINT TUBING 17:07 BUND[facility] *[id number]- Used BUNDLE BUNDLE SHEATH, FR8.5 STEERABLE SM 17:07 [facility] 71CM [id number] Used 71CM BUNDLE COVER, TRANSDUCER CABLE [id number] 17:07 [employer] Used ACUNAV *[id number] 18:06 CORDIS/PACER SHEATH, FR10 YURIDIA 11CM FR 10 Used *[id number] 17:07 [employer] PACK, CCL CUSTOM * Used *[id number] 17:07 MEDLINE PACER MCNAMARA, LIMB * 3139 *[id number] Used 19:37 [facility] PACER SAFE SHEATH, FR9, 13CM FR 9 [id number] Used [id number] 17:07 NAMIC TUBING, HIGH PRESSURE 48" 48" Used *[id number] 17:07 NAMIC TUBING, HIGH PRESSURE 48" 48" Used *[id number] 17:07 [place] [employer],WARM AIR CCL * Used *[id number] 408618 17:58 [facility] MEDICAL CATHETER, JSN, QUAD FR 5 Used *[id number] 17:58 [facility] MEDICAL CATHETER, JSN, QUAD FR 5 Used *[id number] 17:07 [facility] MEDICAL ELECTRODE KIT, DAYNA X SURFACE * Used *[id number] 18:26 [facility] MEDICAL SHEATH, EPS, FR4 FAST CATH FR 4 [id number] Used 054741 17:56 [facility] MEDICAL SHEATH, EPS, FR5 FAST CATH FR 5 Used *[id number] 574485 17:56 [facility] MEDICAL SHEATH, EPS, FR5 FAST CATH FR 5 Used *[id number] 277979 17:56 [facility] MEDICAL SHEATH, EPS, FR5 FAST CATH FR 5 Used *[id number] 823918 17:07 [facility] MEDICAL SHEATH, EPS, FR6 FAST CATH FR 6 Used *[id number] 18:06 [facility] MEDICAL SHEATH, EPS, FR7 FAST CATH FR 7 [id number] Used [id number] 17:07 [facility] MEDICAL SHEATH, EPS, FR8 FAST CATH FR 8 Used *[id number] CATHETER, ACUNAV FR10 ICE [id number] 18:27 DARLIN FR 10 Used (DARLIN) *[id number] [facility] PAD, ELECTROSURGICAL 17:07 * [id number] *[id number] Used SURGICAL GROUNDING (BLUE) History: Current Medications Medication Dosage/Unit Route Frequency Last Date/Time Taken ELIQUMOSES ASA CARDIZEM History: Allergies Allergy Reaction moxifloxacin facial swelling latex rash History: Other Disease Selection Items Cancer Labs Hgb (g/dl) Hct (%) WBC (l/cumm) Platelets (thousands) 11.60-17.00 35.00-51.00 4.00-11.00 150.00-450.00 15.2 42.7 4.7 115 Glucose (mg/dl) BUN (mg/dl) Creatinine (mg/dl) BUN:Creatinine (1:x) 74.00-106.00 7.00-18.00 0.50-1.30 10.00-20.00 79 16 0.7 22.9 Na (meq/l) K (meq/l) 136.00-145.00 3.50-5.10 141 3.8 INR (PTT:PT) 0.90-1.10 1 Troponin I (ng/ml) CPK (u/l) CPK-MB (ng/ML) 0.02-0.05 26.00-308.00 0.50-3.60 0.06 68 Not Drawn Medication Medication Total Dose (Bolus/Oral) Medication Total Dosage/Unit 1% XYLOCAINE 20 mL HEPARIN 57397 units PROTAMINE 40 mg Medications (Bolus/Oral) Medication Time Given Dosage/Unit Administered By Reason 1% XYLOCAINE 12/28/2017 5:53:06 PM 10 mL Lester Martinez 10 mL 1% XYLOCAINE given in lab by Lester Martinez in Left Groin via Subcutaneous. Ordered by Roosevelt Martinez 1% XYLOCAINE 12/28/2017 5:54:23 PM 10 mL Lester Martinez 10 mL 1% XYLOCAINE given in lab by Lester Martinez in Right Groin via Subcutaneous. Ordered by Broderick Martinez. HEPARIN 12/28/2017 6:26:52 PM 75598 units Anesthesia, DAY CARE DIRECTOR 89199 units HEPARIN given in lab by Anesthesia, DAY CARE DIRECTOR in Left Forearm via Peripheral IV. Ordered by Lester Anthony. PROTAMINE 12/28/2017 7:36:57 PM 40 mg Anesthesia, DAY CARE DIRECTOR 40 mg PROTAMINE given by Anesthesia, DAY CARE DIRECTOR via Peripheral IV. Ordered by Lester Martinez. Medication (Drip) Medication Time Given Dosage/Unit Concentration/Unit Diluent (ml) Solution HEPARIN DRIP 12/28/2017 6:52:11 PM 1000 units/hr 28391 units 250 D5W 1000 units/hr HEPARIN DRIP given in lab by Anesthesia, DAY CARE DIRECTOR via Peripheral IV. Pump/Drip Flow = 10 ml /hr [place] [address] units in 250 ml. Ordered by Lester Martinez. ISUPREL 12/28/2017 7:21:00 PM 20 mcg/min 1 mg 250 NaCl .9 20 mcg/min ISUPREL given in lab by Anesthesia, DAY CARE DIRECTOR via Peripheral IV. Pump/Drip Flow = 300 ml/hr usi ng NaCl .9 with a concentration of 1 mg in 250 ml. Ordered by Lester Martinez. IV Solutions 12/28/2017 5:00:18 PM 0 mL (IV) 1000 NaCl .9 Patient arrived on IV Solutions in Left Antecubital via Peripheral IV. Pump/Drip Flow = 20 ml/hr usin g NaCl .9. IV Solutions 12/28/2017 5:00:21 PM 0 mL (IV) 500 NaCl .9 IV Solutions given in lab by Anesthesia, DAY CARE DIRECTOR in Left Forearm via Peripheral IV. Pump/Drip Flow = 20 ml/hr using NaCl .9. Initial Case Assessment Cardiovascular HR Rhythm NIBP Chest Pain 50 sb 140/64 0 Edema Present Skin color Skin None Normal Warm Dry Circulatory - Right Pulses Posterior Tibial d Scale (0,1,2,3,4,d) Circulatory - Left Pulses Posterior Tibial Scale (0,1,2,3,4,d) Circulatory - Lower Extremities Color Lower Right Color Lower Left Normal Normal Neurological State Oriented to time-place- Alert Moves all extremities person Respiration - General Respiration Rate SpO2 (%) O2 (lpm) (B/min) 12 100 2 Final Case Assessment Cardiovascular HR Rhythm NIBP Chest Pain 92 NSR 141/88 0 Edema Present Skin color Skin None Normal Warm Dry Circulatory - Right Pulses Dorsalis Pedis Posterior Tibial Femoral 1 1 1 Scale (0,1,2,3,4,d) Circulatory - Left Pulses Dorsalis Pedis Posterior Tibial Femoral 1 1 1 Scale (0,1,2,3,4,d) Circulatory - Lower Extremities Color Lower Right Color Lower Left Normal Normal Neurological State Oriented to time-place- Drowsy Moves all extremities person Respiration - General Respiration Rate SpO2 (%) O2 (lpm) (B/min) 16 100 4 Chronological Log Time Study Chronological Log 16:41:31 Patient arrived via Bed. 16:41:32 Patient Name, D.O.B, / Armband Verified By R.N. 16:45:34 Pre-op and post- op instructions given; patient acknowledges understanding of instructions. 16:45:36 Verbal Stimulation=2 Physical Stimulation=2 Airway=2 Respiration=2 TOTAL=8. (0=absent, 1=li mited, 2=present) 16:48:08 Patient has been NPO for More than 6Hrs. 16:48:11 Skin Breakdown- left hand ST with bandage in place 16:48:12 Disposable Defibrillator Pads Placed On Patient. 16:48:13 Rahel Prominences Protected 16:55:52 Anesthesia at bedside. HUNTER Durham Assumes care of patient. See anesthesia flowsheet for Q5mi n vitals 17:00:15 IV Warmer Connected To Patient. 17:00:16 A # 18 IV was noted in the Antecubital (left). Grade = 0 17:00:18 Patient arrived on IV Solutions in Left Antecubital via Peripheral IV. Pump/Drip Flow = 20 ml/hr using NaCl .9. 17:00:19 A # 20 IV was noted in the Forearm (left). Grade = 0 IV Solutions given in lab by Anesthesia, DAY CARE DIRECTOR in Left Forearm via Peripheral IV. Pump/Drip Flow = 20 ml/hr using NaCl 17:00:21 .9. 17:07:33 Consent signed by the physician and the patient and verified by the Wet Chemistry Analyst staff. 17:08:23 History and physical on the chart or being dictated. 17:18:02 HR=47 bpm, RZOK=738/64 mmhg, SpO2=99 %, Resp=20 B/min Assessment: Initial Case, HR=50 BPM, Rhythm=sb, WSOI=334/64 mmhg, Chest Pain=0, Edema=None, Col or=Normal, Skin = Warm, Dry Right Pulses: Post Tib=d Left Pulses: Coleman Ped=d 17:19:01 Lower Right Extremities: Color=Normal Lower Left Extremities: Color=Normal Neurological: State=Alert, Ox3, PEREZ Respiration: Resp=12 B/min, QoJ9=103 %, O2=2 lpm 17:26:50 Table restraints applied according to hospital policy 17:35:07 Bilateral groins prepped with 2% chlorhexidine, and draped after a 3 minute waiting time. 17:39:03 MD paged 17:40:09 Reference ECG taken 17:50:36 MD arrived. Time Out. Correct patient, procedure, procedure equipment, site and side verified with physicia n present. Time 17:51:46 concurred by MD, individual staff and DAY CARE DIRECTOR. Time Out #2 - Consents verified, patient in correct position, all results are labled and displa yed, safety precautions 17:51:49 taken, antibiotics administered. Time out concurred by MD, individual staff and DAY CARE DIRECTOR in procedu re 17:51:52 Case Start 17:53:06 10 mL 1% XYLOCAINE given in lab by Lester Martinez in Left Groin via Subcutaneous. Ordered by Lester Martinez. 17:53:29 Vascular access was obtained in the Fem Vein (left). 17:53:33 Vascular access was obtained in the Fem Vein (left). 17:53:34 Vascular access was obtained in the Fem Vein (left). 17:53:35 Vascular access was obtained in the Fem Vein (left). 17:54:02 A SHEATH, EPS, FR5 FAST CATH FR 5 was advanced into the Fem Vein (left) using the Percutane ous technique. 17:54:16 A SHEATH, EPS, FR5 FAST CATH FR 5 was advanced into the Fem Vein (left) using the Percutane ous technique. 17:54:17 A SHEATH, EPS, FR5 FAST CATH FR 5 was advanced into the Fem Vein (left) using the Percutane ous technique. 17:54:23 10 mL 1% XYLOCAINE given in lab by Lester Martinez in Right Groin via Subcutaneous. Ordered b y Lester Martinez. 17:54:34 Vascular access was obtained in the Fem Vein (right). 17:54:39 Vascular access was obtained in the Fem Vein (right). 17:54:57 A SHEATH, EPS, FR6 FAST CATH FR 6 was advanced into the Fem Vein (right) using the Percutan eous technique. 17:55:03 A SHEATH, EPS, FR8 FAST CATH FR 8 was advanced into the Fem Vein (right) using the Percutan eous technique. A CATHETER, JSN, QUAD BUNDLE FR 5 was advanced vis Fem Vein (left) and placed in the HIS. Place ment was 17:57:08 visually confirmed under fluoroscopy. A CATHETER, JSN, QUAD FR 5 was advanced vis Fem Vein (left) and placed in the RVA. Placement wa s visually 17:57:24 confirmed under fluoroscopy. A CATHETER, JSN, QUAD FR 5 was advanced vis Fem Vein (right) and placed in the CS. Placement wa s visually 17:58:26 confirmed under fluoroscopy. 17:59:12 EP study in progress A CATHETER, CELSIUS DS, 8MM, F TYPE QUAD FR 7 was advanced vis Fem Vein (right) and placed in t he HRA. 18:00:41 Placement was visually confirmed under fluoroscopy. 18:02:08 Aflutter ablation in progress 18:07:39 ablation stopped; patient is in AFIB; setup begun for Afib ablation 18:10:32 Anesthesiologist, Dr Jara, at bedside 18:11:52 Patient intubated 18:24:47 Quad Catheters to HRA and RV removed were removed A SHEATH, FR10 YURIDIA 11CM FR 10 was exchanged in the Fem Vein (left). This was necessary in or nick to 18:24:52 accomodate a larger catheter. 18:25:58 Vascular access was obtained in the Fem Art (left). 18:26:14 A SHEATH, EPS, FR4 FAST CATH FR 4 was advanced into the Fem Art (left) using the Percutaneo us technique. 18:26:48 CATHETER, ACUNAV FR10 ICE (Blinkit) FR 10 Was Postioned. 18:26:52 70682 units HEPARIN given in lab by Anesthesia, DAY CARE DIRECTOR in Left Forearm via Peripheral IV. Ord ered by Lester Martinez. A SHEATH, FR8.5 STEERABLE SM 71CM BUNDLE 71CM was exchanged in the Fem Vein (right). This was n ecessary in 18:28:24 order to accomodate a larger catheter. 18:28:41 Carlos in 18:31:54 A eps was advanced to the right atrium and passed through the septal wall to the left atriu m. 18:32:52 baylis out A CATHETER, FR7 OPTIMA SPIRAL BUNDLE FR7 was advanced vis Fem Vein (right) and placed in the LA . Placement 18:34:01 was visually confirmed under fluoroscopy. 18:38:32 Mapping in progress 18:41:19 PACU called. Spoke to Kira to make aware of change in patient status. 18:44:01 Activated Clotting Time Drawn 18:44:16 Mapping catheter was removed A CATHETER, TACTICATH ABLAT 65 BUNDLE was advanced vis Fem Vein (right) and placed in the LA. P lacement was 18:48:40 visually confirmed under fluoroscopy. 18:50:02 RF Ablation of the LT. ATRIUM with a CATHETER, TACTICATH ABLAT 65 BUNDLE. 18:52:02 ACT (Normal Range 90-180) = 341 1000 units/hr HEPARIN DRIP given in lab by Anesthesia, DAY CARE DIRECTOR via Peripheral IV. Pump/Drip Flow = 10 ml/hr using 18:52:11 [place] [address] units in 250 ml. Ordered by Lester Martinez. 19:20:12 Ablation complete. NSR noted on EKG. DAY CARE DIRECTOR preparing isuprel gtt per . 20 mcg/min ISUPREL given in lab by Anesthesia, DAY CARE DIRECTOR via Peripheral IV. Pump/Drip Flow = 300 ml/ hr using NaCl .9 19:21:00 with a concentration of 1 mg in 250 ml. Ordered by Lester Martinez. 19:31:48 Isuprel gtt discontinued per 19:33:21 PACU called. Spoke to Funez. Bedside report will be given. 19:35:09 Heparin gtt discontinued per A SAFE SHEATH, FR9, 13CM FR 9 was exchanged in the Fem Vein (right). This was necessary in orde r to achieve 19:35:54 vascular hemostasis. 19:36:57 40 mg PROTAMINE given by Anesthesia, DAY CARE DIRECTOR via Peripheral IV. Ordered by Lester Martinez. 19:37:26 Catheter(s) removed without difficulty 19:42:47 Ablation procedure performed: AFIB. 19:43:02 EP Procedure was performed. 19:46:28 Activated Clotting Time Drawn 19:49:59 ACT (Normal Range 90-180) = 121 19:51:22 Sheath removed; pressure applied to access site bilateral groins. 19:51:35 No case complications noted. 19:51:36 Cine recording checked. 19:51:41 Bedside Report will be given. 19:51:42 CICU called. Spoke to nursing unit coordinator. Pt will recover in PACU before returning to room 245 Assessment: Final Case, HR=92 BPM, Rhythm=NSR, IVBH=900/88 mmhg, Chest Pain=0, Edema=None, Col or=Normal, Skin = Warm, Dry Right Pulses: Coleman Ped=1, Post Tib=1, Femoral=1 Left Pulses: Coleman Ped=1, Post Tib=1, Femoral=1 19:52:11 Lower Right Extremities: Color=Normal Lower Left Extremities: Color=Normal Neurological: State=Drowsy, Ox3, PEREZ Respiration: Resp=16 B/min, OwP9=270 %, O2=4 lpm 20:14:21 Verbal Stimulation=2 Physical Stimulation=2 Airway=2 Respiration=2 TOTAL=8. (0=absent, 1=l imited, 2=present) 20:14:30 Defibrillator and ground pads removed. Skin intact. 20:20:00 Case End 20:30:00 Patient moved to stretcher End Study - Contrast Media Used In Study Contrast Total Opened (mL) Total Used (mL) Total Wasted (mL) Unspecified 0 0 0 End Study - Maximum Contrast Load Max Contrast Load (mL) 582.8 End Study - Radiation Exposure Fluoro Time (minutes) 4.4 End Study - Patient Disposition Complications Transferred To Interventional Outcome No Telemetry Bed successful
[2017-12-28] MEDS ORDERED: DO NOT ADM ANY ANTICOAGULANT DRUGS PRN (20:34)
[2017-12-28] MEDS: APIXABAN 5 MG TABLET PO SCH (21:55)
[2017-12-28] MEDS ORDERED: SUGAMMADEX SODIUM 200 MG/2 ML VIAL IV PUSH ONE (22:43)
[2017-12-29] VITALS (13 sets, daily range): BP systolic 103–128; BP diastolic 53–73; PULSE 60–80; RESP 16–17; TEMP 97.7–98.5; O2SAT 94–98
[2017-12-29 07:20] LABS: PROTHROMBIN TIME - PATIENT 10.4 SEC (9.8-11.6)
[2017-12-29] MEDS: SODIUM CHLORIDE 0.9% FLUSH 10 ML FLUSH IV FLUSH SCH (08:52)
[2017-12-29] MEDS: APIXABAN 5 MG TABLET PO SCH (08:52)
--- NOTE | 2017-12-29 08:56 | EKG ---
Date Performed: 12/29/2017 Time Performed: 06:11:40 PTAGE: 77 years EKG: Sinus rhythm with PAC(s) Prolonged QT interval Borderline ECG PREVIOUS TRACING : 12/28/2017 20.53 DOCTOR: Chaim Velazquez Interpretating Date/Time 12/29/2017 08:55:12
--- NOTE | 2017-12-29 09:04 | EKG ---
Date Performed: 12/28/2017 Time Performed: 20:53:05 PTAGE: 77 years EKG: Sinus rhythm WITH OCCASIONAL SUPRAVENTRICULAR PREMATURE COMPLEXES BORDERLINE ECG PREVIOUS TRACING : 12/26/2017 12.35 DOCTOR: Chaim Velazquez Interpretating Date/Time 12/29/2017 09:03:47
--- NOTE | 2017-12-29 10:33 | PD.CARD.PN ---
Subjective Subjective Remarks Pt without complaints Objective Medications Current Medications Medications (Trade) Dose Ordered Sig/Claire Route Start Time Stop Time Status Last Admin (NS Flush) 2 ml UNSCH PRN IV FLUSH 12/26/17 11:45 (NS Flush) 2 ml BID IV FLUSH 12/26/17 21:00 12/29/17 08:52 (Tylenol) 650 mg Q4H PRN PO 12/26/17 11:45 (Zofran Inj) 4 mg Q6H PRN IVP 12/26/17 11:45 (Narcan Inj) 0.4 mg UNSCH PRN IV PUSH 12/26/17 11:45 (Milk Of Magnesia Liq) 30 ml Q12H PRN PO 12/26/17 11:45 (Senokot) 17.2 mg Q12H PRN PO 12/26/17 11:45 (Dulcolax Supp) 10 mg DAILY PRN RECTAL 12/26/17 11:45 (Lactulose Liq) 30 ml DAILY PRN PO 12/26/17 11:45 (Eliquis) 5 mg BID PO 12/26/17 21:00 Future hold 12/29/17 08:52 Lactated Ringer's 1,000 ml @ 30 mls/hr Q24H PRN IV 12/28/17 06:30 12/31/17 06:29 Sodium Chloride 500 ml @ 30 mls/hr [id number] PRN IV 12/28/17 06:30 12/31/17 06:29 (Lopressor) 25 mg [employer] PRN PO 12/28/17 06:30 12/31/17 06:29 (Betadine 5% Antisepsis Kit) 1 applic [employer] PRN EACH NARE 12/28/17 06:30 12/31/17 06:29 (Chlorhexidine 2% Cloth) 3 pack [employer] PRN TOPICAL 12/28/17 06:30 12/31/17 06:29 (Percocet 5-325 Mg) 1 tab Q4H PRN PO 12/28/17 19:45 (Percocet 5-325 Mg) 2 tab Q4H PRN PO 12/28/17 19:45 (Ativan Inj) 0.5 mg UNSCH PRN IV PUSH 12/28/17 19:45 12/29/17 19:44 (Atropine Inj) 0.5 mg UNSCH PRN IV PUSH 12/28/17 19:45 Sodium Chloride 250 ml @ 500 mls/hr ONCE PRN IV 12/28/17 19:45 12/29/17 19:44 (Reglan Inj) 10 mg Q4H PRN IV PUSH 12/28/17 19:45 (Zofran Inj) 4 mg Q4H PRN IV PUSH 12/28/17 19:45 (Xylocaine 1% Inj (50 ml)) 10 ml UNSCH PRN INFIL 12/28/17 19:45 12/29/17 19:44 Miscellaneous Information ALL NURSING DEPARTME... UNSCH PRN .XX 12/28/17 20:34 12/29/17 20:33 Vital Signs / I&O Vital Signs Date Time Temp Pulse Resp B/P (MAP) Pulse Ox O2 Delivery O2 Flow Rate FiO2 12/29/17 10:00 76 12/29/17 09:00 80 12/29/17 08:00 66 12/29/17 07:00 97.7 68 16 114/65 (81) 12/29/17 07:00 69 12/29/17 06:42 65 12/29/17 05:35 60 12/29/17 04:47 60 12/29/17 03:50 97.8 68 16 128/73 (91) 98 12/29/17 03:29 64 12/29/17 02:00 65 12/29/17 01:00 68 12/29/17 00:51 98.5 64 17 103/53 (70) 94 12/29/17 00:00 64 12/28/17 23:00 67 12/28/17 22:00 68 12/28/17 22:00 98.3 69 18 123/72 (89) 93 12/28/17 21:15 67 14 112/55 (74) 94 Room Air 12/28/17 21:00 68 16 126/54 (78) 96 Room Air 12/28/17 20:45 66 16 135/61 (85) 100 Nasal Cannula 2 12/28/17 20:35 98.5 66 15 141/63 (89) 100 Nasal Cannula 2 12/28/17 15:10 97.6 78 16 151/77 (101) 98 12/28/17 15:00 59 12/28/17 14:00 56 12/28/17 13:00 60 12/28/17 12:00 60 12/28/17 11:00 98.3 98 18 100/68 (79) 98 12/28/17 11:00 67 I/O 12/28/17 12/28/17 12/28/17 12/29/17 12/29/17 12/29/17 07:00 15:00 23:00 07:00 15:00 23:00 Intake Total 240 ml 0 ml 720 ml Output Total 300 ml 700 ml 600 ml Balance -60 ml -700 ml 120 ml Intake Oral 240 ml 0 ml 720 ml Output Urine Total 300 ml 700 ml 600 ml Physical Exam GENERAL: Well developed, well nourished. No acute distress. HEENT: Jugular venous pressure is normal. CHEST: Lungs clear to auscultation bilaterally. Unlabored respiratory effort. CARDIAC: Regular rate and rhythm without S3, S4, or murmur. ABDOMEN: Soft, nontender, no hepatosplenomegaly. Bowel sounds present. EXTREMITIES: No clubbing, cyanosis, or edema, right groin with 2x3 ecchymosis. bilat DP 2+ Laboratory Laboratory Tests Test 12/29/17 06:19 Prothrombin Time 10.4 SEC Prothromb Time International Ratio 1.0 RATIO Activated Partial Thromboplast Time 23.1 SEC Assessment and Plan Problem List: (1) Paroxysmal atrial fibrillation ICD Codes: I48.0 - Paroxysmal atrial fibrillation Status: Chronic Plan: s/p ablation and doing well [facility] follow up with Dr Martinez in next week or 2 (2) Chest pain ICD Codes: R07.9 - Chest pain, unspecified Status: Acute Plan: no ischemia (3) Atrial flutter ICD Codes: I48.92 - Unspecified atrial flutter Status: Acute Problem Qualifiers (1) Chest pain: Qualified Codes: R07.9 - Chest pain, unspecified (2) Atrial flutter: Qualified Codes: I48.4 - Atypical atrial flutter Eleanor Rivers MD Dec 29, 2017 10:33
--- NOTE | 2017-12-29 15:05 | HHI.DS ---
Discharge Summary Admission Date Dec 26, 2017 at 18:03 Discharge Date: Dec 29, 2017 Admitting Diagnosis Chest Pain, Elevated Trop. (1) Atrial flutter ICD Code: I48.92 - Unspecified atrial flutter Status: Acute (2) Paroxysmal atrial fibrillation ICD Code: I48.0 - Paroxysmal atrial fibrillation Status: Chronic (3) History of breast cancer ICD Code: Z85.3 - Personal history of malignant neoplasm of breast Procedures Ablation procedure by business analysis consultant. Please see report Brief History - From Admission Ms. Ford is a 77-year-old female with a history of atrial fibrillation/atrial flutter, breast cancer status post Adriamycin use as well as radiation who presents to the emergency department today due to a feeling of heart racing and substernal chest pressure. Her symptoms started around 7 PM on 12/25/2017. She felt that her heart rate was quite high. She also had substernal chest pressure without any radiation or associated symptoms such as nausea, vomiting, diaphoresis. Patient was not able to sleep well. Her symptoms continued throughout the night. She eventually came to the emergency department in the morning for further evaluation. She was supposed to see Dr. Johnson with regards to her atrial flutter. She denies any cough, abdominal pain , fever or chills. She denies any changes in bowel or bladder habits. CBC/BMP: 12/28/17 0606 12/28/17 0606 Significant Findings Laboratory Tests Test 12/28/17 06:06 12/29/17 06:19 Platelet Count 115 TH/MM3 (150-450) Monocytes (%) (Auto) 11.3 % (0.0-8.0) Estimat Glomerular Filtration Rate 83 ML/MIN (>89) Activated Partial Thromboplast Time 23.1 SEC (24.3-30.1) Imaging Last Impressions Myocardial Perfusion Scan Nuc Med 12/27/17 0000 Signed Impressions: Service Date/Time: December 12:09 - CONCLUSION: Normal examination except for borderline ejection fraction at 47%%. RISK CATEGORY: Low (<1%% Annual Mortality Rate) Chaim Meneses MD Chest X-Ray 12/26/17 0838 Signed Impressions: Service Date/Time: Tuesday, December 26, 2017 09:07 - CONCLUSION: No acute cardiopulmonary abnormality is identified. Mikey Espana MD PE at Discharge GENERAL: Patient sitting up on edge of bed. Appears comfortable. Alert and oriented 4. SKIN: Warm and dry. HEAD: Normocephalic. EYES: No scleral icterus. No injection or drainage. NECK: Supple, trachea midline. No JVD or lymphadenopathy. CARDIOVASCULAR: Regular rate and rhythm without murmurs, gallops, or rubs. RESPIRATORY: Breath sounds equal bilaterally. No accessory muscle use. GASTROINTESTINAL: Abdomen soft, non-tender, nondistended. MUSCULOSKELETAL: No cyanosis, or edema. BACK: Nontender without obvious deformity. No CVA tenderness. Pt update on day of discharge Patient seen this morning. Says she is feeling well. Denies any chest pain or shortness of breath. Denies any nausea vomiting. Feels like going home. Hospital Course Patient presented with atrial flutter. Cardiology was consulted, patient underwent myocardial perfusion scan which was negative for ischemia, however indicated ejection fraction of 40%. Patient underwent electrophysiologic study , ablation by Dr. Martinez. Patient is cleared by cardiology for discharge. Discharge home to follow-up with cardiology as outpatient. for problem based summary from most recent progress note, please see below. Ms. Ford is a pleasant 77-year-old female with a history of atrial flutter, atrial fibrillation, breast cancer who presents to the emergency department on 12/26/2017 due to a feeling of heart racing as well as substernal chest pressure. //Atrial flutter with RVR //Atrial fibrillation -EKG in the emergency department is consistent. Patient converted to sinus rhythm spontaneously. -Cardiology is following. Lexiscan nuclear stress test is recommended. EP studies also recommended. -Patient's [id number] score is 3 (age 77, female). -Cardiology restarted apixaban 5 mg twice daily. = 3 She is tachycardic with narrow complex tachycardia up to the 150s. This improves to the 120s with lying down. Patient without chest pain. Nursing to contact cardiology as ablation is planned. = 12/28. Heart rate improved. Pending EPS and ablation tomorrow by cardiology. //Mildly elevated troponins -troponins are 0.06, 0.06. Likely due to atrial flutter. //History of breast cancer -Status post Adriamycin meals as well as radiation therapy. -We will continue letrozole 2.5 mg daily. Full code. Apixaban 5 mg BID. Pt Condition on Discharge: Good Discharge Disposition: Discharge Home Discharge Time: > 30 minutes Discharge Instructions DIET: Follow Instructions for: Heart Healthy Diet Activities you can perform: Regular-No Restrictions Follow up Referrals: Cardiology - 1 Week with Lester Martinez MD PCP Follow-up - 1 Week Continued Medications: Apixaban (Eliquis) 5 Mg Tab 5 MG PO BID for afib, #60 TAB Letrozole (Letrozole) 2.5 Mg Tab Chin Fernandez MD Dec 29, 2017 15:05
--- NOTE | 2018-01-16 13:06 | MA ---
cc: Lester Martinez MD DATE: 12/28/2017 PROCEDURE PERFORMED: Electrophysiology study, CS cannulation, 2-D mapping, radiofrequency ablation of atrial flutter, ____ heart catheterization, intracardiac echo, radiofrequency ablation of atrial fibrillation, pulmonary vein isolation, posterior ablation, mitral line creation, ____ wall ablation, repeat electrophysiology study on Isuprel infusion. INDICATION: Mrs. Ford is a 77-year-old female with supraventricular tachyarrhythmia, appeared at the beginning to be atrial flutter, very difficult to control, on and off episode, referred for electrophysiology study and ablation. The risks, the nature and the benefit of the procedure are clearly stated to her. Risks include pneumothorax, cardiac perforation, stroke and even . She understands and agreed to proceed. PROCEDURE: After written informed consent was obtained, the patient was brought to the EP lab where she was prepped and draped in the usual sterile fashion. Conscious sedation was initiated and maintained throughout the procedure by anesthesiologist. Once sedation verified, the right and left inguinal area was anesthetized with 2% Xylocaine. Using modified Seldinger technique, the right femoral vein was cannulated on two occasions, two guidewires were advanced over the wire, a 6 [place] and an 8 [place] Hemaquet were advanced. Then the left femoral vein was cannulated on three occasions. Three guidewires were advanced over the wire. A 3.5 [place] Hemaquet wire advanced. Then, under fluoroscopic guidance, with a 5 [place] Hemaquet, 4.5 [place] Venessa curved quadripolar electrophysiology catheter were advanced and placed around the His at the right atrium, coronary sinus and left ventricular apex. Basic interval was measured and was within normal limit. At this point, atrial pacing protocol was performed. Atrial pacing protocol, supraventricular tachyarrhythmia ____ of atrial flutter was induced. Then, through the 8 [place] Hemaquet, a Cordis-Arce F-curve , 8 mm mapping and radiofrequency ablation catheter was advanced. Using the [employer] mapping system, a 3-dimensional configuration of the right atrium was obtained. Then the catheter was . Radiofrequency ablation was delivered. During ablation, patient broke into atrial fibrillation. Flutter stopped. At that point, the patient went into incessant atrial fibrillation. I decided to proceed with ablation of atrial fibrillation. Then, the left femoral artery was cannulated on one occasion. One guidewire was advanced over the wire. A 4 [place] Hemaquet was advanced. Then, the catheter at the left ventricular apex was removed. The sheath was upgraded to a 10 [place] Hemaquet. Then, through the 10 [place] Hemaquet, intracardiac echo catheter was advanced and placed in the right atrium. Multiple views were obtained. There is mild to moderate left atrial enlargement. Atrial septum was visualized. Aortic root was seen. Then, the 8 [place] Hemaquet in the right femoral vein was exchanged for an [place]ilis transeptal sheath that was placed all the way to the superior vena cava. Through the sheath the baylis needle was advanced. Then the sheath, the dilator, and the needle was pulled back until the foci engaged. Once engaged, needle was advanced. RF was delivered for two secondphats. I was able to cross into the left atrium. Once the needle crossed, the dilator was advanced; once the dilator crossed, the sheath was advanced; once the shealth crossed, the dilator and the needle were removed. The patient already received 10,000 units of heparin. The goal is to keep an ACT around 350 seconds during the ablation. Then through the sheath, a ____ circumferential catheter was advanced. Using the [employer] mapping system, a 3-dimensional configuration of the left atrium was obtained. Veins were very active. Then, the circumferential catheter was exchanged for a [place]. Demetrio TactiCath 65 mm to get mapping with radiofrequency ablation catheter. First I did proceed with isolation of the left superior and inferior vein. TactiCath getting ____. The mitral line was created. Then, flow line was created. Then, the roof line was created. The posterior wall was ablated. Then, I did isolated the right superior and inferior vein. At that point, the patient went into sinus rhythm. Further burn was delivered in the area. Then, the circumferential catheter was advanced into the vein. The veins were quiet. of conduction to the atrium. At that point, Isuprel was infused at 20 mcg. No tachyarrhythmia was induced. Post-Isuprel, no tachyarrhythmia was induced. At that point, procedure was complete. All catheters were removed. The patient tolerated the procedure. Blood loss minimal. 1. Electrocardiogram at baseline. The patient was in sinus rhythm. Then patient was in short flutter, then atrial fibrillation. Postprocedure, the patient in sinus rhythm. 2. Basic interval. Each cycle length was around 780 milliseconds. 3. Tachyarrhythmia. Atrial flutter was mapped and ablated. Atrial fibrillation was mapped and ablated. Ablation was successful. CONCLUSION: Successful electrophysiology study, mapping, radiofrequency ablation of atrial flutter , radiofrequency ablation of atrial fibrillation, pulmonary vein isolation, posterior ablation, mitral line creation, mitral wall ablation, roof line creation, flow line creation, electrophysiology study on Isuprel infusion and intracardiac echo. RECOMMENDATIONS: The patient will be transferred to the recovery room. Will be observed. When stable, can be discharged home in the morning. MD TERESA Yoder/SONAL , 11:06 PM , 08:52 AM
== END 2017-12-29 11:27 | disposition home or self-care (01) | DRG 274 ==
LOC: NEPC 08:34 → NEDA 11:45 → UNDODISOB 11:57 → HCIS 15:33 → OBSVTOIN 18:03
PROVIDERS: ADMIT Internal Medicine; ATTEND Internal Medicine
PROC: 4A0234Z Measurement of Cardiac Electrical Activity, Percutaneous Approach (ICD-10-PCS; 2017-12-28)
PROC: 02K83ZZ Map Conduction Mechanism, Percutaneous Approach (ICD-10-PCS; 2017-12-28)
PROC: B246ZZZ Ultrasonography of Right and Left Heart (ICD-10-PCS; 2017-12-28)
PROC: 02583ZZ Destruction of Conduction Mechanism, Percutaneous Approach (ICD-10-PCS; principal; 2017-12-28 16:45)
DX: I48.0 Paroxysmal atrial fibrillation (principal); R07.89 Other chest pain; I48.4 Atypical atrial flutter; Z85.3 Personal history of malignant neoplasm of breast; Z92.3 Personal history of irradiation; Z79.01 Long term (current) use of anticoagulants
CPT/HCPCS: 71046; 76937; 78452; 80053; 80069; 81001; 82550; 83735; 84484; 85002; 85025; 85610; 85730; 93005; 93017; 93613; 93623; 93653; 93656; 93662; A9502; C1730; C1731; C1732; C1759; C1766; C2630; J1100; J1644; J1650; J1940; J2370; J2405; J2720; J2785; J3010